=== PATIENT | female | born 1930 | race Caucasian/White ===

== ENCOUNTER 2016-08-09 14:38 | Emergency (ER) | payer MEDICARE ==
[2016-08-09 14:52] VITALS: BP 139/54
--- NOTE | 2016-08-10 16:20 | UC ---
Lucia Abdalla Erika, scribed for Danielle Manzano MD on 08/09/16 at 1500 . Complaint Female HPI - HPI Summary HPI Summary: Patient is an 85-year-old female presenting to [facility] with a CC of frequent urination starting last night. Pt reports that she was urinating every 45 minutes through the night. Pt reports that she first developed chills before the urinary symptoms began, which have since resolved. She then developed a full feeling in her bladder, and then the frequent urination started afterwards. Patient denies fever, chest pain, SOB, back pain, nausea, and vomiting. Pt also reports a recent diagnosis of vertigo, for which she has been seen by ENT and is taking medication. She also reports she has been taking 2.5 weeks of amoxicillin, current dose at 500 mg 1x/day, for inflammation of her left lower molar. Pt reports a Hx of UTI "many years ago." FHx cancer. - History Of Current Complaint Chief Complaint: UCDizziness Stated Complaint: DIZZY Hx Obtained From: Patient Onset/Duration: Gradual Onset, Lasting Hours, Still Present Timing: Constant Severity Initially: Mild Severity Currently: Moderate Pain Intensity: 5 Pain Scale Used: 0-10 Numeric Aggravating Factor(s): Urination Alleviating Factor(s): Nothing Associated Signs And Symptoms: Negative: Fever, Back Pain, Nausea, Vomiting(# Of Episodes =) - Risk Factors Ectopic Risk Factor: Negative Ovarian Torsion Risk Factor: Negative - Allergies/Home Medications Allergies/Adverse Reactions: Allergies Allergy/AdvReac Type Severity Reaction Status Date / Time Scopolamine Allergy Intermediate Hives, Verified 06/08/13 08:25 itching, hypertension Home Medications: Home Medications Amoxicillin CAP* 1 cap PO DAILY 08/09/16 [History Confirmed 08/09/16] PMH/Surg Hx/FS Hx/Imm Hx Endocrine History Of: Denies: Diabetes, Thyroid Disease Cardiovascular History Of: Reports: Cardiac Disorders - valve prolapse, Hypertension - ON MEDS Denies: Pacemaker/ICD Respiratory History Of: Denies: COPD, Asthma, Bronchitis GI/ History Of: Denies: Ulcer Cancer History Of: Denies: Breast Cancer - Surgical History Surgical History: Yes Surgery Procedure, Year, and Place: Ovarian cyst removed 1966 [facility] [place] , hysterectomy 1979 (appendix removed at same time 1979, [facility] [place]), R wrist surgical repair, 2000, [facility] [place]. 1996, RIGHT KNEE, [facility] [place],. 2010 rt tibial fx./CATARACT REPAIR 2012 - Family History Known Family History: Positive: Hypertension, Other - pos breast CA (sister) - Social History Alcohol Use: Rare Substance Use Type: None Smoking Status (MU): Never Smoked Tobacco Review of Systems Constitutional: Chills ENT: Dental Pain - left lower molar, improving Genitourinary: Frequency, Other - full feeling in bladder Neurological: Other - vertigo All Other Systems Reviewed And Are Negative: Yes Physical Exam Triage Information Reviewed: Yes Appearance: No Pain Distress, Well-Nourished, Ill-Appearing - Mildly Vital Signs: Initial Vital Signs Temp 98 F 08/09/16 14:44 Pulse 77 08/09/16 14:44 Resp 18 08/09/16 14:44 BP 139/54 08/09/16 14:44 Pulse Ox 96 08/09/16 14:44 Vital Signs Reviewed: Yes Eyes: Positive: Conjunctiva Clear ENT: Positive: Normal ENT inspection Dental Exam: Other - Inflammed tooth with minimal swelling of the gums - @ tooth that is two posterior to the canine, left lower Dental: Positive: Gross Decay/Caries @ Neck: Positive: Supple Respiratory: Positive: No respiratory distress Cardiovascular: Positive: RRR, Pulses Normal, Brisk Capillary Refill Abdomen Description: Positive: Nontender, No Organomegaly, Soft. Negative: CVA Tenderness (R), CVA Tenderness (L), Distended, Guarding Musculoskeletal: Positive: Strength Intact, ROM Intact Neurological: Positive: Alert, Muscle Tone Normal Psychological Exam: Normal Skin Exam: Normal Diagnostics - Laboratory Diagnostic Studies Completed/Ordered: UA: 1.005, pH 7, 500 WBCs/microL, 300 RBCs /microL, protein 100 mg/dL, all else negative Re-Evaluation - Re-Evaluation First Eval Re-Evaluation Time: 15:34 Change: Unchanged Comment: Informing patient of UA results and discharge plan Complaint Female Dx - Differential Dx/Diagnosis Differential Diagnosis/HQI/PQRI: Ureteral Stone, Urinary Tract Infection Provider Diagnoses: 1. Urinary Tract Infection - Physician Notifications Discussed Patient Care With: Spoke to Madhavi in pharmacy, clarified that bactrim is 1 PO BID Discharge - Discharge Plan Condition: Stable Disposition: HOME Prescriptions: Sulfamethox/Trimethoprim DS* [Bactrim DS 800/160 TAB*] 1 tab PO BID #14 tab Patient Education Materials: Urinary Tract Infection in Women (ED) Referrals: Farhat MONTEMAYOR,Eder [Primary Care Provider] - The documentation as recorded by the Lucia cleary Erika accurately reflects the service I personally performed and the decisions made by me, Danielle Manzano MD.
== END 2016-08-09 15:50 | disposition home or self-care (01) ==
LOC: UCEAST 14:38
DX: R35.0 Frequency of micturition (principal); N39.0 Urinary tract infection, site not specified; I10 Essential (primary) hypertension; R42 Dizziness and giddiness
CPT/HCPCS: 81002; 87077; 87086; 87186; 99212; G0463

== ENCOUNTER → 2016-12-17 14:46 | Emergency (ER) | payer MEDICARE ==
[~2016-12-17 14:46] MED LIST: HYDROcodone/ACETAMIN 5-325 MG* 1 TAB ONE; HYDROcodone/ACETAMIN 5-325 MG* 1 TAB PO ONE; Iohexol 300* (CONTRAST) 10 ML SDV IV ONE; LORazepam INJ* 2 MG/ML 1 ML VIAL IV ONE; LORazepam INJ* 2 MG/ML 1 ML VIAL ONE; Morphine INJ* 2 MG/ML 1 ML SYRINGE IV ONE; Morphine INJ* 2 MG/ML 1 ML SYRINGE ONE; NS 0.9% 250 ML* 250 ML IV ONE; Ondansetron INJ* 2 MG/ML VIAL IV ONE
[2016-12-17 16:28] LABS: Hematocrit 40 % (35-47); Hemoglobin 13.4 g/dl (12.0-16.0); Mean Corpuscular HGB Conc 34 g/dl (31-36); Mean Corpuscular Hemoglobin 32 pg (27-31); Mean Corpuscular Volume 94 fL (80-97); Mean Platelet Volume 8 um3 (7.4-10.4); Red Blood Count 4.21 10^6/ul (4.0-5.4); Red Cell Distribution Width 13 % (10.5-15); White Blood Count 10.7 10^3/ul (3.5-10.8)
--- NOTE | 2016-12-17 16:34 | ED ---
Lower Extremity - HPI Summary HPI Summary: Patient was at home when she tripped over the corner of her wood stove base. She fell forward onto the carpet and landed on her right side, barely hitting her head on the floor. She was able to get to her feet for ice and an ibuprofen , but called a friend for help and they brought her in. She has pain with movement and weight bearing. She denies previous injury. No LOC, CP, SOB, MISTRY or neck pain. She has right flank and abdominal pain, as well as right hip and sacral pain. She denies N/T, incontinence or bruising. - History of Current Complaint Chief Complaint: EDBackInjuryPain Stated Complaint: LOWER BACK PAIN Time Seen by Provider: 12/17/16 15:25 Hx Obtained From: Patient Mechanism Of Injury: Fall From A Standing Position Onset of Pain: Immediate Onset/Duration: Hours Severity Initially: Moderate Severity Currently: Moderate Pain Intensity: 5 Timing: Constant Character Of Pain: Sharp, Aching Associated Signs And Symptoms: Positive: Abdominal Pain Aggravating Factor(s): Standing, Movement, Weight Bearing Alleviating Factor(s): Nothing Able to Bear Weight: Yes - with pain - Allergies/Home Medications Allergies/Adverse Reactions: Allergies Allergy/AdvReac Type Severity Reaction Status Date / Time Scopolamine Allergy Intermediate Hives, Verified 06/08/13 08:25 itching, hypertension PMH/Surg Hx/FS Hx/Imm Hx Endocrine/Hematology History: Denies: Hx Diabetes, Hx Thyroid Disease Cardiovascular History: Reports: Hx Hypertension - ON MEDS, 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 Denies: Hx Pacemaker/ICD Comment Only: Other Cardiovascular Problems/Disorders - MITROVALVE PROLAPSE Respiratory History: Denies: Hx Asthma, Hx Chronic Obstructive Pulmonary Disease (COPD), Other Respiratory Problems/Disorders GI History: Denies: Hx Ulcer, Other GI Disorders History: Reports: Other Problems/Disorders - Ovarian cyst removed 1966, recent urinary frequency Musculoskeletal History: Reports: Other Musculoskeletal History - Hx osteoporosis Sensory History: Reports: Hx Cataracts, Hx Contacts or Glasses - GLASSES Denies: Hx Hearing Aid Opthamlomology History: Reports: Hx Cataracts, Hx Contacts or Glasses - GLASSES Neurological History: Reports: Other Neuro Impairments/Disorders - CHRONIC FATIGUE SYNDROME Psychiatric History: Denies: Hx Panic Disorder - Cancer History Hx Chemotherapy: No Hx Radiation Therapy: No - Surgical History Surgery Procedure, Year, and Place: [place] [facility] [place] , [place] (appendix removed at [place] time [place] [facility] [place] wrist surgical repair, [place] [facility] [place]. [place], RIGHT [place] [facility] [place],. 2010 rt tibial fx./CATARACT REPAIR 2012 Hx Anesthesia Reactions: No Infectious Disease History: Yes Infectious Disease History: Denies: Hx Clostridium Difficile, Hx Hepatitis, Hx Human Immunodeficiency Virus (HIV), Hx of Known/Suspected MRSA, Hx Shingles, Hx Tuberculosis, Hx Known/ Suspected VRE, Hx Known/Suspected VRSA, History Other Infectious Disease, Traveled Outside the [place] in Last 30 Days - Family History Known Family History: Positive: Hypertension, Other - pos breast CA (sister) - Social History Occupation: Retired Lives: With Family Alcohol Use: Rare Substance Use Type: Reports: None Smoking Status (MU): Never Smoked Tobacco Review of Systems Negative: Chest Pain Negative: Shortness Of Breath Positive: Abdominal Pain. Negative: Vomiting Positive: Myalgia, Decreased ROM Negative: Bruising Negative: Weakness, Paresthesia, Numbness All Other Systems Reviewed And Are Negative: Yes Physical Exam Triage Information Reviewed: Yes Vital Signs On Initial Exam: Initial Vitals Temp Pulse Resp BP Pulse Ox 98.5 F 76 18 151/75 95 12/17/16 15:13 12/17/16 15:13 12/17/16 15:13 12/17/16 15:13 12/17/16 15:13 Vital Signs Reviewed: Yes Appearance: Positive: Well-Appearing, Pain Distress, Thin Skin: Positive: Warm, Skin Color Reflects Adequate Perfusion, Dry, Soft Head/Face: Positive: Normal Head/Face Inspection Eyes: Positive: EOMI, SONIDO, Conjunctiva Clear ENT: Positive: Hearing grossly normal, Pharynx normal, TMs normal Neck: Positive: Supple, Nontender Respiratory/Lung Sounds: Positive: Clear to Auscultation, Breath Sounds Present Cardiovascular: Positive: RRR Abdomen Description: Positive: Soft, CVA Tenderness (R). Negative: Nontender - TTP RUQ and right flank, CVA Tenderness (L), Distended, Guarding, Peritoneal Signs, Pulsatile Mass Bowel Sounds: Positive: Present Musculoskeletal: Positive: Limited @ - patient unwilling to to perform movements due to pain, Pain @ - TTP right hip, SI joint and sacral region; + B SLR Neurological: Positive: Sensory/Motor Intact, Alert, Oriented to Person Place, Time, CN Intact II-III, NV Bundle Intact Distally, Abnormal Gait Psychiatric: Positive: Affect/Mood Appropriate AVPU Assessment: Alert - Liliya Coma Scale Coma Scale Total: 15 Diagnostics - Vital Signs Vital Signs Temp Pulse Resp BP Pulse Ox 12/17/16 16:27 17 12/17/16 16:26 74 16 154/81 12/17/16 15:13 98.5 F 76 18 151/75 95 - Laboratory Result Diagrams: 12/17/16 16:16 12/17/16 16:16 Lab Statement: Any lab studies that have been ordered have been reviewed, and results considered in the medical decision making process. Re-Evaluation - Re-Evaluation First Eval Change: Improved Lower Extremity Course/Dx - Diagnoses Differential Diagnosis/HQI/PQRI: Positive: Arthritis, Bursitis, Cellulitis, Contusion, Fracture (Closed), Sprain, Strain Provider Diagnoses: Fall from standing, Sacral back pain, Right hip pain - Physician Notifications Discussed Care of Patient With: Patient care signed out to Juliann Padilla PA-C. Time Discussed With Above Provider: 17:45 Discharge - Discharge Plan Condition: Stable Disposition: HOME Patient Education Materials: Muscle Strain (ED), Fall Prevention for Older Adults (ED), Contusion in Adults (ED) Referrals: Eder Dougherty MD [Primary Care Provider] - Additional Instructions: You appear to have multiple areas of muscle strain/ligament strain since your fall. It is advised that you ice and perform gentle stretches and movements to prevent stiffness. You may also try hot showers and baths along with good hydration and nutrition to aid your healing process. You may take ibuprofen with food alternating with acetaminophen for pain during the day. If you choose to take norco (hydrocodone/acetaminophen), caution taking too much acetaminophen (less than 4,000mg per 24 hours). It is also advised that you avoid taking norco with alprazolam before bed to reduce risk of excessive drowsiness, dizziness, confusion and reduced breathing efforts. This medication may also cause constipation - you may be proactive by taking stool softeners and maintaining good hydration plus fiber. You may take norco before bed to help with pain and help you sleep. Follow-up with PCP this week. Call tomorrow to schedule an appointment. *If you develop headache, visual change, confusion, numbness, weakness, vomiting , etc - return to ED
[2016-12-17 16:49] LABS: ALT 20 U/L (7-52); AST 25 U/L (13-39); Albumin 4.1 g/dL (3.2-5.2); Alkaline Phosphatase 58 U/L (34-104); Anion Gap 9 mmol/L (2-11); BUN/Creatinine Ratio 25.8 (8-20); Blood Urea Nitrogen 16 mg/dL (6-24); C Reactive Protein < 1.00 mg/L (< 5.00); CO2 Carbon Dioxide 30 mmol/L (22-32); Calcium 9.4 mg/dL (8.6-10.3); Chloride 97 mmol/L (101-111); EGFR African American 117.4 (>60); EGFR Non-African American 91.3 (>60); Globulin 3.1 g/dL (2-4); Glucose 98 mg/dL (70-100); Potassium 3.4 mmol/L (3.5-5.0); Sodium 136 mmol/L (133-145); Total Protein 7.2 g/dL (6.4-8.9)
[2016-12-17 17:41] LABS: Urine Bilirubin Negative (Negative); Urine Glucose Negative (Negative); Urine Nitrite Negative (Negative)
--- NOTE | 2016-12-17 19:35 | RAD ---
INDICATION: Trauma to the back of the head. COMPARISON: None. TECHNIQUE: Contiguous axial sections of the brain were obtained from the skull base to the vertex without contrast. FINDINGS: The ventricles, cisterns and sulci are within normal limits. There are mild to moderate periventricular and subcortical white matter changes most consistent with mild chronic microvascular disease. The morales-white matter differentiation is adequately maintained and there is no sulcal effacement. No significant focal abnormality or mass effect is present. There is no evidence for intracranial hemorrhage. No significant focal osseous abnormality is present. The visualized portion of the paranasal sinuses and mastoid air cells appear clear. IMPRESSION: Age-appropriate chronic findings as described above without CT evidence of calvarial fracture or acute intracranial hemorrhage.
--- NOTE | 2016-12-17 19:53 | RAD ---
CLINICAL HISTORY: ] Abdominal, flank and pelvic pain after a fall COMPARISON: Similar CT examination dated October 26, 2012 TECHNIQUE: Contrast enhanced CT examination of the abdomen and pelvis from the lung bases through the initial tuberosities. The patient received 79 mL Omnipaque 300 intravenously prior to imaging.The patient received oral contrast as well prior to imaging. FINDINGS: VISUALIZED LUNG BASES: Centrilobular emphysematous changes are seen at the bilateral lung bases. Visualized lung bases are grossly clear. There is no pleural effusion. ABDOMEN AND PELVIS: There is a small to moderate hiatal hernia. Oral contrast from the stomach is refluxing into the hiatal hernia. There is asymmetric wall thickening of the site of hernia measuring 7 mm in thickness (image 8 of 93). The liver, spleen, pancreas and adrenal glands are grossly normal in appearance. The gallbladder is normal. The kidneys are normal in appearance without focal mass, calcification or signs of hydronephrosis. The urinary bladder measures 10.3 x 10.8 cm in the axial plane 11.4 cm in the cephalocaudal projection. This yields an approximate volume of just over 1 L. The oral contrast has progressed to the midportion of the small bowel. The small and large bowel are not distended. There is no gross retroperitoneal or mesenteric lymphadenopathy. The pelvic viscera is normal in appearance. The moderately calcified abdominal aorta and iliac arteries are normal in course and diameter. There is compression deformity involving the L1 vertebral body that is new since the 2013 CT examination. There is no retropulsion of fragments. There is no definite inflammatory change of the soft tissue surrounding the vertebral body. Elsewhere degenerative changes include loss of intervertebral disc height. There is cortical irregularity involving the right inferior pubic ramus (axial image 82 of 93). With similar cortical irregularity involving the right-sided superior pubic ramus. This is new since the previous CT examination but appears chronic with bony callus formation and continuous cortices. IMPRESSION: 1. There is a compression deformity of the L1 vertebral body that was not seen on the October 26, 2012 CT examination. This is not necessarily have features associated with an acute fracture. There is no retropulsion of fragments. Please correlate to the focality of the patient's back pain. 2. There is evidence of a healed right pubic ramus fracture not seen on the October 26, 2012 CT examination but chronic in appearance. 3. There is asymmetric wall thickening of the small hiatal hernia. Please correlate to symptoms of gastritis. If clinically warranted this can be further characterize with endoscopy on a nonemergent basis. 4. Top normal urinary bladder volume measuring just over 1 L. Please correlate to signs or symptoms of neurogenic bladder and/or bladder outlet obstruction. 5. Additional chronic and degenerative changes described in the body of the report.
--- NOTE | 2016-12-17 21:20 | ED ---
Progress - Progress Note Progress Note: Pt signed out earlier tonight pending CT scan results s/p fall earlier today. Patient reports she was at home when she tripped over the corner of her wood stove base. She fell forward onto the carpet and landed on her right side, barely hitting her head on the floor. She was able to get to her feet for ice and an ibuprofen, but after 2 hours of waiting to see if she felt better, she called a friend for help and they brought her in. She had pain with movement and weight bearing however since here, she was able to ambulate well to the bathroom w/o pain or difficulty. She denies previous injury. No LOC, CP, SOB, MISTRY or neck pain. She had right flank, abdominal pain, Rt hip pain (SI region) and sacral pain upon arrival however reports she's feeling better since pain meds. She denies N/T, incontinence or bruising. Her CT scans were reviewed and discussed w/ pt. Head/brain w/o acute findings as well as AB/PELVIS. She was found to have old L1 compression fx and Rt pubic ramus fx of which pt is aware and reports this was the result of a fall from bed a few years ago - healing well. Her CT report also documents bladder retaining urine however pt, son and nurse all report pt has voided alot of urine since CT scan w/o difficulty. Despite NPO order, she has been drinking PO water w/o difficulty. She also had IVF while waiting for test results. Overall, feeling better now. Takes alprazolam before bed. Would like something for breakthrough pain and understands she will not mix norco w/ alprazolam as this may cause excessive drowsiness, dizziness, confusion and increase risk for falls. Pt's son agrees to stay with her for a few days to assist w/ meds, monitoring sx, etc. Pt agrees to f/u w/ PCP this week for recheck and return to ED if sx worsen and/or new neurological deficits present. Re-Evaluation - Re-Evaluation First Eval Change: Improved Course/Dx - Diagnoses Provider Diagnoses: Fall from standing, Sacral back pain, Right hip pain - Provider Notifications Discussed Care Of Patient With: Patient care signed out to Juliann Padilla PA-C. Time Discussed With Above Provider: 17:45
[2016-12-17 22:04] VITALS: BP 156/86
== END | disposition home or self-care (01) ==
LOC: ED 14:46
DX: M53.3 Sacrococcygeal disorders, not elsewhere classified (principal); M25.551 Pain in right hip; W18.09XA Striking against other object with subsequent fall, initial encounter; Y92.009 Unspecified place in unspecified non-institutional (private) residence as the place of occurrence of the external cause; I10 Essential (primary) hypertension; M81.0 Age-related osteoporosis without current pathological fracture; I34.1 Nonrheumatic mitral (valve) prolapse; R53.82 Chronic fatigue, unspecified
CPT/HCPCS: 36415; 70450; 72192; 74177; 80053; 81003; 85025; 86140; 99282; J2060; J2270; J2405; Q9967

== ENCOUNTER 2016-12-22 21:15 | Inpatient (IN) | payer MEDICARE ==
[2016-12-22] MEDS ORDERED: Morphine INJ* 2 MG/ML 1 ML SYRINGE IV ONE (23:02)
--- NOTE | 2016-12-22 23:09 | ED ---
Back Pain - HPI Summary HPI Summary: Patient presents with back pain not well controlled at home with Snowflake. She was seen in the ED on 12/17 after a mechanical fall at home. She was dx with a compression fx and sent home with rx for Snowflake as well as with the understanding her family would help at home during this time and she will follow up with Ortho soon. She arrives today with worsening pain and one incidence of numbness/tingling with some burning sensation down the right leg while ambulating this afternoon. She denies numbness/tingling currently. She states the pain medication has only improved her symptoms slightly and she would like something stronger. She also notes to being unsteady on her feet and feels she is very weak when she attempts to ambulate to the bathroom with help. She had once instance of loss of bladder function, but states it was directly after standing and hasn't happened since. She is currently wearing depends in case it happens again. Denies bowel dysfunction, but states she is very constipated d/t the medication and was due to have an enema. She was able to ambulate with help to the commode and had no bowel or bladder dysfunction in the ED. Likely the once instance was d/t overfilled bladder while awaiting help to rise from a lying position. She denies temperature or color changes in her legs or feet. She does not feel the pain is worse, but it also has not improved. - History of Current Complaint Chief Complaint: EDBackInjuryPain Stated Complaint: BACK PAIN Time Seen by Provider: 12/22/16 21:37 Hx Obtained From: Patient Onset/Duration: Sudden Onset Onset/Duration: Started Days Ago Timing: Constant Back Pain Location: Is Discrete @ - lower back Severity Initially: Moderate Severity Currently: Moderate Pain Intensity: 7 Pain Scale Used: 0-10 Numeric Character: Aching Aggravating Symptom(s): Movement, Lifting, Walking Alleviating Symptom(s): Rest, Position Associated Signs And Symptoms: Positive: Weakness, Numbness, Bladder Incontinence - one episode, now resolved. continues to feel bladder - Risk Factors AAA Risk Factors: Negative TAD Risk Factors: Negative Cauda Equina Risk Factors: Bladder Dysfunction, Lower Extremity Weakness Epidural Abscess Risk Factors: Lower Extemity Numbness, Lower Extremity Weakness - Allergies/Home Medications Allergies/Adverse Reactions: Allergies Allergy/AdvReac Type Severity Reaction Status Date / Time Scopolamine Allergy Intermediate Hives, Verified 06/08/13 08:25 itching, hypertension PMH/Surg Hx/FS Hx/Imm Hx Previously Healthy: Yes Endocrine/Hematology History: Denies: Hx Diabetes, Hx Thyroid Disease Cardiovascular History: Reports: Hx Hypertension - ON MEDS, 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 Denies: Hx Pacemaker/ICD Comment Only: Other Cardiovascular Problems/Disorders - MITROVALVE PROLAPSE Respiratory History: Denies: Hx Asthma, Hx Chronic Obstructive Pulmonary Disease (COPD), Other Respiratory Problems/Disorders GI History: Denies: Hx Ulcer, Other GI Disorders History: Reports: Other Problems/Disorders - Ovarian cyst removed 1966, recent urinary frequency Musculoskeletal History: Reports: Other Musculoskeletal History - Hx osteoporosis Sensory History: Reports: Hx Cataracts, Hx Contacts or Glasses - GLASSES Denies: Hx Hearing Aid Opthamlomology History: Reports: Hx Cataracts, Hx Contacts or Glasses - GLASSES Neurological History: Reports: Other Neuro Impairments/Disorders - CHRONIC FATIGUE SYNDROME Psychiatric History: Denies: Hx Panic Disorder - Cancer History Hx Chemotherapy: No Hx Radiation Therapy: No - Surgical History Surgery Procedure, Year, and Place: Ovarian cyst removed 1966 [facility] , hysterectomy 1979 (appendix removed at same time 1979, [facility] [place]), R wrist surgical repair, 1999, [facility] [place]. 1996, RIGHT KNEE, [facility] [place],. 2010 rt tibial fx./CATARACT REPAIR 2012 Hx Anesthesia Reactions: No - Immunization History Hx Pertussis Vaccination: No Immunizations Up to Date: Unable to Obtain/Confirm Infectious Disease History: No Infectious Disease History: Denies: Hx Clostridium Difficile, Hx Hepatitis, Hx Human Immunodeficiency Virus (HIV), Hx of Known/Suspected MRSA, Hx Shingles, Hx Tuberculosis, Hx Known/ Suspected VRE, Hx Known/Suspected VRSA, History Other Infectious Disease, Traveled Outside the [place] in Last 30 Days - Family History Known Family History: Positive: Hypertension, Other - pos breast CA (sister) - Social History Occupation: Unemployed Lives: Alone Alcohol Use: Rare Hx Substance Use: No Substance Use Type: Reports: None Hx Tobacco Use: No Smoking Status (MU): Never Smoked Tobacco Do You Chew or Dip Tobacco: No Review of Systems Constitutional: Negative Eyes: Negative Cardiovascular: Negative Respiratory: Negative Gastrointestinal: Negative Positive: see HPI, incontinence - 1x episode Positive: Arthralgia - low back pain since fall, Myalgia Skin: Negative Positive: Paresthesia, Numbness Psychological: Normal All Other Systems Reviewed And Are Negative: Yes Physical Exam Triage Information Reviewed: Yes Vital Signs On Initial Exam: Initial Vitals Temp Pulse Resp BP Pulse Ox 99 F 79 18 191/97 96 12/22/16 21:30 12/22/16 21:30 12/22/16 21:30 12/22/16 21:30 12/22/16 21:30 Vital Signs Reviewed: Yes Appearance: Positive: Well-Nourished, Pain Distress Skin: Positive: Warm, Skin Color Reflects Adequate Perfusion Head/Face: Positive: Normal Head/Face Inspection Eyes: Positive: EOMI, SONIDO, Conjunctiva Clear Neck: Positive: Supple, Nontender, No Lymphadenopathy Respiratory/Lung Sounds: Positive: Clear to Auscultation, Breath Sounds Present Cardiovascular: Positive: Normal, RRR Abdomen Description: Positive: Nontender, No Organomegaly, Soft Musculoskeletal: Positive: Pain @ - low back around L4-L6 Neurological: Positive: Alert, Oriented to Person Place, Time, Speech Normal AVPU Assessment: Alert - Liliya Coma Scale Best Eye Response: 4 - Spontaneous Best Motor Response: 6 - Obeys Commands Best Verbal Response: 5 - Oriented Coma Scale Total: 15 Diagnostics - Vital Signs Vital Signs Temp Pulse Resp BP Pulse Ox 12/22/16 21:30 99 F 79 18 191/97 96 - Laboratory Lab Statement: Any lab studies that have been ordered have been reviewed, and results considered in the medical decision making process. Back Pain Course/Dx - Course Course Of Treatment: Patient here 5 days s/p mechanical fall with pain not relieved with Snowflake. She is unable to ambulate well and feels weak and unsteady on her feet. Discussed patient with Dr. Flynn who accepted patient on the basis of failing a walk exam with patient being obviously weak. Will Admit to [facility]. Assessment/Plan: Admit to [facility] - Diagnoses Differential Diagnosis/HQI/PQRI: Positive: Cauda Equina Syndrome, Compressive Cord Syndrome, Strain, Sprain Provider Diagnoses: Back pain - Provider Notifications Instructed by Provider To: Admit As Inpatient Discharge - Discharge Plan Condition: Stable Disposition: ADMITTED TO [facility] Discharge Disposition Comment: Spoke with Dr. Flynn at 11:00pm
[2016-12-22] MEDS ORDERED: HYDROcodone/ACETAMIN 5-325 MG* 1 TAB ONE (23:23)
[2016-12-22] MEDS ORDERED: HYDROcodone/ACETAMIN 5-325 MG* 1 TAB PO ONE (23:25)
[2016-12-22] MEDS ORDERED: Ondansetron INJ* 2 MG/ML VIAL IV PRN (23:32)
[2016-12-22] MEDS ORDERED: Polyethylene Glycol 3350* 17 GM PACKET PO SCH (23:35)
[2016-12-22] MEDS ORDERED: ALPRAZolam TAB* 0.25 MG PO PRN (23:36)
[2016-12-23 01:13] LABS: Hematocrit 37 % (35-47); Hemoglobin 12.3 g/dl (12.0-16.0); Mean Corpuscular HGB Conc 33 g/dl (31-36); Mean Corpuscular Hemoglobin 32 pg (27-31); Mean Corpuscular Volume 95 fL (80-97); Mean Platelet Volume 7 um3 (7.4-10.4); Red Blood Count 3.92 10^6/ul (4.0-5.4); Red Cell Distribution Width 13 % (10.5-15); White Blood Count 7.4 10^3/ul (3.5-10.8)
[2016-12-23 01:23] LABS: Calcium 8.8 mg/dL (8.6-10.3); EGFR African American 124.3 (>60); EGFR Non-African American 96.6 (>60); Potassium 3.3 mmol/L (3.5-5.0)
--- NOTE | 2016-12-23 02:35 | HP ---
HISTORY AND PHYSICAL: DATE OF ADMISSION: 12/22/16 PRIMARY CARE PROVIDER: Dr. Dougherty. ATTENDING PHYSICIAN WHILE IN THE HOSPITAL: Alexx Patiño MD* (report dictated by Amari Miranda NP) CHIEF COMPLAINT: Back pain. HISTORY OF PRESENT ILLNESS: Mrs. Kirby is an 86-year-old female patient. She has a history of hypertension, osteoporosis, chronic fatigue, and hyperlipidemia. She comes in to the ER today stating that early this week, she was at home. She tripped over her horse, she fell, she came to the ER, was found to have a compression fracture, was sent home on p.o. pain control. Unfortunately, the pain over the last 24 hours has gotten too severe for her to tolerate at home. She stated that she was having some numbness down the front of her leg. She had no weakness. No incontinence of urine or stool. She has actually said she was constipated. She needed to take an extra dose of her stool softener. She finally had a bowel movement today, but she was concerned because the pain was just unbearable. Anytime she tried to get up to walk, she was having a hard time, so she came in to the ER. She denied having any shortness of breath. She denied having any chest pain. She denied having any abdominal pain. No nausea. No vomiting. She denied having any episodes, where she fainted or had any loss of consciousness. She came in to the ER, where she was evaluated. They tried to ambulate the patient, but unfortunately she was unable to ambulate safely. She was having too much pain despite giving a total of 4 mg of IV morphine. She was having too much discomfort still and we were asked to evaluate for admission. PAST MEDICAL HISTORY: Significant for: 1. Hypertension. 2. Osteoporosis. 3. Chronic fatigue. 4. Hyperlipidemia. PAST SURGICAL HISTORY: The patient has had: 1: Ankle surgery. 2. Cataract extraction. 3. Hysterectomy. 4. Wrist fracture. 5. She has also had a fractured lower extremity. HOME MEDICATIONS: According to the list that she gave me includes: 1. Triamterene/hydrochlorothiazide 1 tablet p.o. daily. 2. Simvastatin 20 mg daily. 3. Xanax 0.25 mg p.o. daily as needed. ALLERGIES TO MEDICATIONS: Include SCOPOLAMINE. FAMILY HISTORY: Both her parents had stroke. SOCIAL HISTORY: She does not smoke. She does not drink. Surrogate decision maker is her son, Lonny. REVIEW OF SYSTEMS: There is no documented fever. Denied having any significant weight change. There was no double vision. Denies having any ear discharge. There is no rhinorrhea. No sore throat. No thyroid enlargement. Denied having any chest pain. There was no orthopnea. No nocturnal dyspnea. There was no abdominal pain. No nausea. No vomiting. Review of 14 systems completed, all others negative. PHYSICAL EXAMINATION GENERAL: At this time, Mrs. Kirby is an 86-year-old female patient, she is sitting in the ER stretcher. She does not appear to be in any acute distress. VITAL SIGNS: Blood pressure initially was 191/97, pulse of 79, respirations 18 , O2 sat 96%, and temperature 99. Her blood pressure now is noted to be 180/ 70. She is in a significant amount of pain. HEENT: Head is atraumatic, normocephalic. Eyes: EOMs are intact. Sclerae anicteric and not pale. NECK: Supple. Throat: Oral mucosa appears to be moist. No oropharyngeal erythema. LUNGS: Clear to auscultation bilaterally. No wheezes, rales, or rhonchi. HEART: Sounds S1, S2. Regular rate and rhythm. No murmurs, rubs, or gallops. ABDOMEN: Soft, flat, and nontender. Bowel sounds present. EXTREMITIES: Pulses were 2+ throughout. She is actually able to move all 4 extremities with 5/5 strength. On straight leg raise to the right lower extremity, she does elicit pain at about 20 degrees and had 5/5 strength. NEUROLOGICAL: She is awake, alert, and oriented x3. Tongue midline. Labor Gang Supervisor were equal. No gross focal deficits. She has equal sensation of bilateral lower extremities. She has good strength and movement. She does have pain with ambulation. SKIN: Is intact. DIAGNOSTIC STUDIES/LAB DATA: Labs today are pending. She had a CT of the abdomen and pelvis, which reported, impression: "There is compression deformity at L1 vertebral body, which was not seen on the 10/26/12 examination. Evidence of healed right pubic rami fracture. There is eccentric wall thickening of the small hiatal hernia, please correlate with symptoms of gastritis and she had a brain CT done as well on the , which revealed age- appropriate chronic findings as described in the CT. Old medical records were reviewed. ASSESSMENT AND PLAN: Mrs. Kirby is an 86-year-old female patient coming in to the ER today with complaints of back pain. Despite adequate good pain control in the ED, she was having difficulty with ambulation. There was concern. Hospitalist service was asked to evaluate for admission. She will be admitted under observation status for: 1. Intractable back pain: At this point, I suspect this is from the L1 compression fracture. In fact, she is not having any neuro deficits. There is no signs of incontinence of urine or stool. My plan at this point is I will actually go ahead and put her on [place] 2 tablets every 4 hours with an aggressive bowel regimen. In addition, there is p.r.n. Flexeril for spasm. In addition to this, we will also place her on Lidoderm patch. 2. Hypertension: Continue meds as prescribed. 3. Osteoporosis: Follow up with the primary. 4. Chronic fatigue: Follow up with the primary. 5. Hyperlipidemia: Continue statin therapy. 6. DVT prophylaxis: She is high risk. She will be placed on heparin subcu. 7. Fluids, electrolytes, and nutrition: She can have a regular diet. 8. Code status: Full code. TIME SPENT: Time spent on the admission was 60 minutes; greater than half the time was spent [id number] with the patient obtaining my history and physical, the other half time is spent going over the plan of care with the patient and implementing plan of care. I discussed the plan of care with my attending, Dr. Patiño. He is in agreement. AMARI MRIANDA NP CC: Dr. Dougherty* [id number]/[facility] #: [id number] [place]
[2016-12-23] MEDS: Senna TAB PO SCH ×2 (04:15→21:36)
[2016-12-23] MEDS: Heparin VIAL(*) 5000 UNITS/ML VIAL (FIVE THOUSAND) SUBCUT SCH ×3 (05:49→21:39)
[2016-12-23] MEDS: HYDROcodone/ACETAMIN 5-325 MG* 1 TAB PO PRN ×2 (07:38→12:33)
[2016-12-23] MEDS: Triamterene/HCTZ 37.5-25 MG* CAP PO SCH (07:41)
[2016-12-23] MEDS: Atorvastatin* 10 MG TAB PO SCH (07:42)
[2016-12-23] MEDS: Docusate CAP* 100 MG PO SCH ×2 (07:42→21:35)
[2016-12-23] MEDS ORDERED: Lidocaine PATCH 5%* 1 PATCH TRANSDERM SCH (09:00)
[2016-12-23 09:45] LABS: Hematocrit 40 % (35-47); Hemoglobin 13.5 g/dl (12.0-16.0); Mean Corpuscular HGB Conc 34 g/dl (31-36); Mean Corpuscular Hemoglobin 32 pg (27-31); Mean Corpuscular Volume 93 fL (80-97); Mean Platelet Volume 7 um3 (7.4-10.4); Red Blood Count 4.24 10^6/ul (4.0-5.4); Red Cell Distribution Width 13 % (10.5-15); White Blood Count 7.5 10^3/ul (3.5-10.8)
[2016-12-23 10:10] LABS: BUN/Creatinine Ratio 23.6 (8-20); Calcium 9.1 mg/dL (8.6-10.3); EGFR African American 134.8 (>60); EGFR Non-African American 104.8 (>60); Potassium 3.4 mmol/L (3.5-5.0)
[2016-12-23] MEDS: Acetaminophen TAB* 325 MG PO PRN ×3 (10:36→21:36)
[2016-12-23] MEDS ORDERED: HYDROcodone/ACETAMIN 5-325 MG* 1 TAB PO PRN (13:50)
--- NOTE | 2016-12-23 16:09 | PN ---
Subjective Date of Service: 12/23/16 Interval History: Pain about 5/10, little change. Objective Active Medications: Alprazolam (Xanax Tab*) 0.25 mg PO DAILY PRN PRN Reason: ANXIETY Last Admin: 12/23/16 10:40 Dose: 0.25 mg Atorvastatin Calcium (Lipitor*) 10 mg PO DAILY [facility] Last Admin: 12/23/16 07:42 Dose: 10 mg Cyclobenzaprine HCl (Flexeril Tab*) 10 mg PO BID PRN PRN Reason: SPASMS Docusate Sodium (Colace Cap*) 100 mg PO BID [facility] Last Admin: 12/23/16 07:42 Dose: 100 mg Heparin Sodium (Porcine) (Heparin Vial(*)) 5,000 units SUBCUT Q8HR [facility] Last Admin: 12/23/16 12:34 Dose: 5,000 units Lidocaine (Lidoderm 5% Patch*) 1 patch TRANSDERM .ON 0900 OFF AT 2100 [facility] Pharmacy Profile Note (Lidocaine Patch Remove*) 1 note PATCH OFF 2100 [facility] Polyethylene Glycol/Electrolytes (Miralax*) 17 gm PO DAILY@2100 [facility] Last Admin: 12/23/16 04:15 Dose: 17 gm Senna (Senokot Tab*) 2 tab PO BEDTIME [facility] Last Admin: 12/23/16 04:15 Dose: 2 tab Triamterene/HCTZ (Dyazide Cap*) 1 cap PO DAILY [facility] Last Admin: 12/23/16 07:41 Dose: 1 cap Vital Signs 12/23/16 12/23/16 12/23/16 04:53 04:56 07:38 Temperature 98.6 F Pulse Rate 83 Respiratory 17 17 20 Rate Blood Pressure 178/75 (mmHg) O2 Sat by Pulse 95 Oximetry 12/23/16 12/23/16 12/23/16 08:00 08:43 09:38 Temperature 98.2 F Pulse Rate 88 Respiratory 14 16 18 Rate Blood Pressure 188/92 (mmHg) O2 Sat by Pulse 98 Oximetry 12/23/16 12/23/16 12/23/16 10:40 12:33 14:33 Temperature Pulse Rate Respiratory 16 14 16 Rate Blood Pressure (mmHg) O2 Sat by Pulse Oximetry Oxygen Devices in Use Now: None Appearance: Alert, supine in bed. In good spirits. Clearly uncomfortable when sat up in bed and dangled her legs. Eyes: No Scleral Icterus Extremities: No Edema, No Clubbing, Cyanosis, - Skin: No Rash or Ulcers, No Nodules or Sclerosis, - Neurological: Alert and Oriented x 3, NL Sensation - Moves all limbs well. Result Diagrams: 12/23/16 09:34 12/23/16 09:34 Assess/Plan/Problems-Billing Assessment: - Patient Problems (1) Vertebral fracture Current Visit: Yes Status: Acute Code(s): GGJ7670 - SNOMED Code(s): 75229361 Comment: Change to PRN oxycodone and APAP to avoid excessive APAP dosing. Continue PT, OT. (2) HTN (hypertension) Current Visit: Yes Status: Acute Code(s): I10 - ESSENTIAL (PRIMARY) HYPERTENSION SNOMED Code(s): 85443769 Comment: Continue triamterene/thiazide; KCL ordered. (3) Hyperlipidemia Current Visit: Yes Status: Acute Code(s): E78.5 - HYPERLIPIDEMIA, UNSPECIFIED SNOMED Code(s): 62170798 Comment: Continue statin.
[2016-12-23] MEDS: oxyCODONE TAB* 5 MG TAB PO PRN (19:16)
[2016-12-23] MEDS: Potassium Chlor TAB* 10 MEQ TAB.ER PO SCH (19:16)
[2016-12-23] MEDS: Lidocaine Patch REMOVE* 1 NOTE MISC PATCH OFF SCH (21:26)
[2016-12-23] MEDS: Polyethylene Glycol 3350* 17 GM PACKET PO SCH (21:34)
[2016-12-24] MEDS: ALPRAZolam TAB* 0.25 MG PO PRN ×2 (00:07→14:57)
[2016-12-24] MEDS: oxyCODONE TAB* 5 MG TAB PO PRN ×5 (00:07→22:20)
[2016-12-24] MEDS: Heparin VIAL(*) 5000 UNITS/ML VIAL (FIVE THOUSAND) SUBCUT SCH ×3 (04:56→21:14)
[2016-12-24] MEDS: Acetaminophen TAB* 325 MG PO PRN ×2 (04:56→10:38)
[2016-12-24] MEDS: Cyclobenzaprine TAB* 10 MG PO PRN (04:56)
[2016-12-24] MEDS: Docusate CAP* 100 MG PO SCH ×2 (07:51→20:19)
[2016-12-24] MEDS: Potassium Chlor TAB* 10 MEQ TAB.ER PO SCH (07:52)
[2016-12-24] MEDS: Cholecalciferol TAB* 1000 UNITS PO SCH (07:52)
[2016-12-24] MEDS: Polyethylene Glycol 3350* 17 GM PACKET PO SCH ×2 (07:53→20:18)
[2016-12-24] MEDS: Triamterene/HCTZ 37.5-25 MG* CAP PO SCH (07:53)
[2016-12-24] MEDS: Atorvastatin* 10 MG TAB PO SCH (07:53)
[2016-12-24] MEDS ORDERED: Hydrochlorothiazide TAB* 25 MG PO SCH (09:00)
[2016-12-24] MEDS ORDERED: oxyCODONE SR TAB(*) 10 MG TAB.SR PO ONE (14:30)
[2016-12-24] MEDS: oxyCODONE SR TAB(*) 10 MG TAB.SR PO SCH ×2 (14:50→20:18)
--- NOTE | 2016-12-24 15:04 | PN ---
Subjective Date of Service: 12/24/16 Interval History: No subj change. Pain is over 10. She managed to get to the commode twice today. No new c/o. Objective Active Medications: Acetaminophen (Tylenol Tab*) 650 mg PO Q6H PRN PRN Reason: FEVER/PAIN Last Admin: 12/24/16 10:38 Dose: 650 mg Alprazolam (Xanax Tab*) 0.25 mg PO BID PRN PRN Reason: ANXIETY Last Admin: 12/24/16 14:57 Dose: 0.25 mg Atorvastatin Calcium (Lipitor*) 10 mg PO DAILY [facility] Last Admin: 12/24/16 07:53 Dose: 10 mg Cholecalciferol (Vitamin D Tab*) 1,000 units PO DAILY [facility] Last Admin: 12/24/16 07:52 Dose: 1,000 units Cyclobenzaprine HCl (Flexeril Tab*) 10 mg PO BID PRN PRN Reason: SPASMS Last Admin: 12/24/16 04:56 Dose: 10 mg Docusate Sodium (Colace Cap*) 100 mg PO BID [facility] Last Admin: 12/24/16 07:51 Dose: 100 mg Heparin Sodium (Porcine) (Heparin Vial(*)) 5,000 units SUBCUT Q8HR [facility] Last Admin: 12/24/16 14:49 Dose: 5,000 units Lidocaine (Lidoderm 5% Patch*) 1 patch TRANSDERM .ON 0900 OFF AT 2100 [facility] Last Admin: 12/24/16 10:40 Dose: 1 patch Oxycodone HCl (Roxycodone Tab*) 5 mg PO Q4H PRN PRN Reason: PAIN - MODERATE TO SEVERE Last Admin: 12/24/16 11:56 Dose: 5 mg Oxycodone HCl (Oxycontin(*)) 10 mg PO Q12HR [facility] Last Admin: 12/24/16 14:50 Dose: Not Given Pharmacy Profile Note (Lidocaine Patch Remove*) 1 note PATCH OFF 2100 [facility] Last Admin: 12/23/16 21:26 Dose: Not Given Polyethylene Glycol/Electrolytes (Miralax*) 17 gm PO BID [facility] Last Admin: 12/24/16 07:53 Dose: Not Given Potassium Chloride (Klor Con Er Tab*) 20 meq PO DAILY [facility] Last Admin: 12/24/16 07:52 Dose: 20 meq Senna (Senokot Tab*) 2 tab PO BEDTIME [facility] Last Admin: 12/23/16 21:36 Dose: 2 tab Triamterene/HCTZ (Dyazide Cap*) 1 cap PO DAILY [facility] Last Admin: 12/24/16 07:53 Dose: 1 cap Vital Signs 12/23/16 12/23/16 12/23/16 19:16 19:37 21:16 Temperature 98.0 F Pulse Rate 77 Respiratory 14 16 17 Rate Blood Pressure 149/67 (mmHg) O2 Sat by Pulse 98 Oximetry 12/23/16 12/24/16 12/24/16 22:11 00:03 00:07 Temperature 98.8 F Pulse Rate 81 Respiratory 18 16 20 Rate Blood Pressure 182/76 (mmHg) O2 Sat by Pulse 96 Oximetry 12/24/16 12/24/16 12/24/16 01:59 02:00 04:56 Temperature Pulse Rate Respiratory 16 16 18 Rate Blood Pressure (mmHg) O2 Sat by Pulse Oximetry 12/24/16 12/24/16 12/24/16 06:56 07:17 07:52 Temperature Pulse Rate 80 Respiratory 16 16 16 Rate Blood Pressure 160/78 (mmHg) O2 Sat by Pulse 94 Oximetry 12/24/16 12/24/16 12/24/16 08:00 09:51 11:56 Temperature Pulse Rate Respiratory 16 16 16 Rate Blood Pressure (mmHg) O2 Sat by Pulse Oximetry 12/24/16 12/24/16 12/24/16 13:56 14:44 14:50 Temperature Pulse Rate Respiratory 16 16 16 Rate Blood Pressure (mmHg) O2 Sat by Pulse Oximetry 12/24/16 14:57 Temperature Pulse Rate Respiratory 1 Rate Blood Pressure (mmHg) O2 Sat by Pulse Oximetry Oxygen Devices in Use Now: None Appearance: Supine in bed, hips and kness flexed. Alert. In fair spirits. Extremities: No Edema, No Clubbing, Cyanosis, - Skin: No Rash or Ulcers, No Nodules or Sclerosis, - Neurological: Alert and Oriented x 3 - foot dorsiflexion strong BL. , NL Sensation Result Diagrams: 12/23/16 09:34 12/23/16 09:34 Assess/Plan/Problems-Billing Assessment: - Patient Problems (1) Vertebral fracture Current Visit: Yes Status: Acute Code(s): [id number] - SNOMED Code(s): 18089498 Comment: Add oxycodone 10 mg bid, to get 2 doses 12/24. Dr. Mckeon to consult. Continue PT, OT. (2) HTN (hypertension) Current Visit: Yes Status: Acute Code(s): I10 - ESSENTIAL (PRIMARY) HYPERTENSION SNOMED Code(s): 07291029 Comment: Continue triamterene/thiazide; KCL ordered. (3) Hyperlipidemia Current Visit: Yes Status: Acute Code(s): E78.5 - HYPERLIPIDEMIA, UNSPECIFIED SNOMED Code(s): 84281370 Comment: Continue statin.
--- NOTE | 2016-12-24 16:31 | RAD ---
Indication: Fall, back pain. CT of the thoracic spine was obtained in the axial plane. Sagittal and coronal reconstructed images were obtained. Comparison is made with previous exam dated December 17, 2016. There is compression of the L1 vertebra with compression of approximately 50%. This appears to have progressed since previous exam of December 17, 2016. The remainder of the thoracic vertebra appear normal in height and alignment although diffuse osteopenia is noted. No focal protrusion is present at any of the thoracic disc levels. The spinal canal appears to be intact. The lung zavala demonstrate dependent changes of the lung zavala. No alveolar consolidation is noted. IMPRESSION: Progressive compression of L1 vertebra which is now approximately 50% compressed. The remainder of the thoracic spine demonstrates no compression fracture.
[2016-12-24] MEDS: Lidocaine Patch REMOVE* 1 NOTE MISC PATCH OFF SCH (20:19)
[2016-12-24] MEDS: Senna TAB PO SCH (20:19)
[2016-12-25] MEDS: oxyCODONE TAB* 5 MG TAB PO PRN ×5 (02:25→23:14)
[2016-12-25] MEDS: ALPRAZolam TAB* 0.25 MG PO PRN ×2 (02:36→19:24)
[2016-12-25] MEDS: Cyclobenzaprine TAB* 10 MG PO PRN (04:31)
[2016-12-25] MEDS: Heparin VIAL(*) 5000 UNITS/ML VIAL (FIVE THOUSAND) SUBCUT SCH ×3 (05:54→21:12)
[2016-12-25] MEDS: Cholecalciferol TAB* 1000 UNITS PO SCH (08:09)
[2016-12-25] MEDS: Docusate CAP* 100 MG PO SCH ×2 (08:09→20:47)
[2016-12-25] MEDS: Atorvastatin* 10 MG TAB PO SCH (08:09)
[2016-12-25] MEDS: Potassium Chlor TAB* 10 MEQ TAB.ER PO SCH (08:09)
[2016-12-25] MEDS: Polyethylene Glycol 3350* 17 GM PACKET PO SCH ×2 (08:09→20:47)
[2016-12-25] MEDS: Triamterene/HCTZ 37.5-25 MG* CAP PO SCH (08:10)
[2016-12-25] MEDS: oxyCODONE SR TAB(*) 10 MG TAB.SR PO SCH ×2 (08:10→20:47)
[2016-12-25] MEDS ORDERED: Magnesium Hydroxide LIQ* 30 ML UDC PO ONE (12:10)
--- NOTE | 2016-12-25 12:14 | PN ---
Subjective Date of Service: 12/25/16 Interval History: Pain level 9 today, but worse when she gets OOB to use the commode. Slept some last night. She is sl groggy from either the oxycodone, r=the alprazolam, or the combination. Objective Active Medications: Acetaminophen (Tylenol Tab*) 650 mg PO Q6H PRN PRN Reason: FEVER/PAIN Last Admin: 12/24/16 10:38 Dose: 650 mg Alprazolam (Xanax Tab*) 0.25 mg PO BID PRN PRN Reason: ANXIETY Last Admin: 12/25/16 02:36 Dose: 0.25 mg Atorvastatin Calcium (Lipitor*) 10 mg PO DAILY [facility] Last Admin: 12/25/16 08:09 Dose: 10 mg Cholecalciferol (Vitamin D Tab*) 1,000 units PO DAILY [facility] Last Admin: 12/25/16 08:09 Dose: 1,000 units Cyclobenzaprine HCl (Flexeril Tab*) 10 mg PO BID PRN PRN Reason: SPASMS Last Admin: 12/25/16 04:31 Dose: 10 mg Docusate Sodium (Colace Cap*) 100 mg PO BID [facility] Last Admin: 12/25/16 08:09 Dose: 100 mg Heparin Sodium (Porcine) (Heparin Vial(*)) 5,000 units SUBCUT Q8HR [facility] Last Admin: 12/25/16 05:54 Dose: 5,000 units Lidocaine (Lidoderm 5% Patch*) 1 patch TRANSDERM .ON 0900 OFF AT 2100 [facility] Last Admin: 12/24/16 10:40 Dose: 1 patch Oxycodone HCl (Roxycodone Tab*) 5 mg PO Q4H PRN PRN Reason: PAIN - MODERATE TO SEVERE Last Admin: 12/25/16 08:10 Dose: 5 mg Oxycodone HCl (Oxycontin(*)) 10 mg PO Q12HR [facility] Last Admin: 12/25/16 08:10 Dose: 10 mg Pharmacy Profile Note (Lidocaine Patch Remove*) 1 note PATCH OFF 2099 [facility] Last Admin: 12/24/16 20:19 Dose: 1 note Polyethylene Glycol/Electrolytes (Miralax*) 17 gm PO BID [facility] Last Admin: 12/25/16 08:09 Dose: 17 gm Potassium Chloride (Klor Con Er Tab*) 20 meq PO DAILY [facility] Last Admin: 12/25/16 08:09 Dose: 20 meq Senna (Senokot Tab*) 2 tab PO BEDTIME [facility] Last Admin: 12/24/16 20:19 Dose: 2 tab Triamterene/HCTZ (Dyazide Cap*) 1 cap PO DAILY [facility] Last Admin: 12/25/16 08:10 Dose: 1 cap Vital Signs 12/24/16 12/24/16 12/24/16 13:56 14:44 14:50 Temperature Pulse Rate Respiratory 16 16 16 Rate Blood Pressure (mmHg) O2 Sat by Pulse Oximetry 12/24/16 12/24/16 12/24/16 14:57 16:36 16:44 Temperature 98.2 F Pulse Rate 82 Respiratory 1 16 16 Rate Blood Pressure 143/57 (mmHg) O2 Sat by Pulse 96 Oximetry 12/24/16 12/24/16 12/24/16 16:57 17:46 19:46 Temperature Pulse Rate Respiratory 16 16 18 Rate Blood Pressure (mmHg) O2 Sat by Pulse Oximetry 12/24/16 12/24/16 12/24/16 20:00 20:17 20:18 Temperature 98.4 F Pulse Rate 76 Respiratory 16 16 16 Rate Blood Pressure 141/58 (mmHg) O2 Sat by Pulse 96 Oximetry 12/24/16 12/24/16 12/24/16 21:46 22:18 22:20 Temperature Pulse Rate Respiratory 16 18 18 Rate Blood Pressure (mmHg) O2 Sat by Pulse Oximetry 12/24/16 12/24/16 12/25/16 23:35 23:46 00:18 Temperature 99.1 F Pulse Rate 82 Respiratory 16 16 16 Rate Blood Pressure 147/66 (mmHg) O2 Sat by Pulse 93 Oximetry 12/25/16 12/25/16 12/25/16 00:20 02:25 02:36 Temperature Pulse Rate Respiratory 16 16 16 Rate Blood Pressure (mmHg) O2 Sat by Pulse Oximetry 12/25/16 12/25/16 12/25/16 04:20 04:25 04:31 Temperature 98.8 F Pulse Rate 78 Respiratory 16 16 16 Rate Blood Pressure 125/54 (mmHg) O2 Sat by Pulse 94 Oximetry 12/25/16 12/25/16 12/25/16 04:36 06:25 06:30 Temperature Pulse Rate Respiratory 16 16 16 Rate Blood Pressure (mmHg) O2 Sat by Pulse Oximetry 12/25/16 12/25/16 12/25/16 07:22 08:00 08:10 Temperature 98.3 F Pulse Rate 76 Respiratory 16 18 16 Rate Blood Pressure 144/63 (mmHg) O2 Sat by Pulse 92 Oximetry 12/25/16 10:10 Temperature Pulse Rate Respiratory 16 Rate Blood Pressure (mmHg) O2 Sat by Pulse Oximetry Oxygen Devices in Use Now: None Appearance: Alert, supine in bed with hips and knees partly flexed. In fair spirits. Looks comfortable at rest. Eyes: No Scleral Icterus Extremities: No Edema, No Clubbing, Cyanosis, - Skin: No Rash or Ulcers, No Nodules or Sclerosis, - Neurological: Alert and Oriented x 3, NL Sensation - Foot flexion and dorsiflexion strong BL. Result Diagrams: 12/23/16 09:34 12/23/16 09:34 Assess/Plan/Problems-Billing Assessment: - Patient Problems (1) Vertebral fracture Current Visit: Yes Status: Acute Code(s): [id number] - SNOMED Code(s): 37638031 Comment: Continue oxycodone 10 mg bid and PRN meds. Dr. Mckeon to consult. Continue PT, OT. CT thoracic spine shows about 50% compression of L1, felt to have progressed since 12/17/16. (2) HTN (hypertension) Current Visit: Yes Status: Acute Code(s): I10 - ESSENTIAL (PRIMARY) HYPERTENSION SNOMED Code(s): 29836242 Comment: Continue triamterene/thiazide; KCL ordered. (3) Hyperlipidemia Current Visit: Yes Status: Acute Code(s): E78.5 - HYPERLIPIDEMIA, UNSPECIFIED SNOMED Code(s): 59912370 Comment: Continue statin.
--- NOTE | 2016-12-25 14:41 | CONSULT ---
Consult Consult: Neurosurgery Consult Reason for consult: L1 burst fracture Date of consult: 12/25/16 HPI: This is an 86 year old female with past medical history significant for HTN and osteoporosis who presented to the [facility] ED on 12/22/16 with complaint of severe low back pain, not controlled with medication. She had previously been evaluated in the [facility] ED on 12/17/16 after a fall and was diagnosed with a L1 compression fracture. She was discharged home with pain medications. However, over the next several days, the pain continued to worsen. She was initially able to ambulate with assistance of a walker but this ability declined between ED visits. She also began to experience pain in the right lower extremity and numbness of the right foot which have both resolved since admission. She currently complains of low back pain without radiation to the bilateral lower extremities or up/down the spine. Pain is worse with movements and slightly improved with rest. However, she has not been able to sleep well secondary to the pain. Attempts to get up to the bedside commode significantly worsen the pain to a severity of the patient nearly passing out. She also complains of mild sensitivity to touch in the right lower quadrant of the abdomen. She has been taking bowel regulating medications and has had regular bowel movements. She denies numbness, tingling, weakness and pain in the bilateral lower extremities. She denies changes in bladder function; she does have urine incontinence prior to the fall. She denies headache, vision changes, chest pain, difficulty breathing, nausea, vomiting and dizziness. Past medical history: 1. Hypertension 2. Osteoporosis 3. Hyperlipidemia 4. Chronic fatigue Past surgical history: 1. Ovarian cyst resection 2. Hysterectomy 3. Appendectomy 4. Right wrist repair 5. Right knee procedure 6. Tibial fracture procedure 7. Cataracts No adverse reactions to anesthesia. Home medications: 1. Alprazolam 0.25 mg PO DAILY PRN 10/26/12 [History Confirmed 12/22/16] 2. Simvastatin 20 mg PO DAILY 10/26/12 [History Confirmed 12/22/16] 3. Triamterene/HCTZ 37.5-25 MG* 1 tab PO DAILY 10/26/12 [History Confirmed 12/22] Allergies: 1. Scopolamine Social history: The patient does not smoke, rarely consumes alcohol. ROS: Full ROS completed; pertinent findings stated in HPI and all others negative. Physical exam: Vital Signs: Temp Pulse Resp BP Pulse Ox 98.3 F 76 18 144/63 92 12/25/16 07:22 12/25/16 07:22 12/25/16 12:39 12/25/16 07:22 12/25/16 07:22 General: Elderly female laying in bed. Somewhat restless and uncomfortable. HEENT: Head is normocephalic and atraumatic. PERRLA, EOMi. Gross hearing intact. Moist mucus membranes. Neck: Supple, symmetric and nontender. CV: Radial pulses 2+ and equal. Pedal pulses palpable. Lungs: Breathing is nonlabored. Lungs are clear. Abdomen: Normoactive bowel sounds. Mild tenderness to light palpation of right lower quadrant. Abdomen is soft and nondistended. Neuro: Alert and oriented x3. Speech is clear and coherent. CN II-XII intact. Strength 5/5 throughout. Strength testing in the right and left lower extremities creates significant low back pain resulting in giveway weakness. Patellar and achilles refelxes intact bilaterally. Sensation to light touch intact throughout. Extremities: ROM of lower extremities creates pain. Full ROM throughout. Laboratory values: WBC 7.5 10^3/ul (3.5-10.8) 12/23/16 09:34 RBC 4.24 10^6/ul (4.0-5.4) 12/23/16 09:34 Hgb 13.5 g/dl (12.0-16.0) 12/23/16 09:34 Hct 40 % (35-47) 12/23/16 09:34 MCV 93 fL (80-97) 12/23/16 09:34 MCH 32 pg (27-31) H 12/23/16 09:34 MCHC 34 g/dl (31-36) 12/23/16 09:34 RDW 13 % (10.5-15) 12/23/16 09:34 Plt Count 193 10^3/ul (150-450) 12/23/16 09:34 MPV 7 um3 (7.4-10.4) L 12/23/16 09:34 Neut % (Auto) 68.7 % (38-83) 12/23/16 09:34 Lymph % (Auto) 18.3 % (25-47) L 12/23/16 09:34 [place] % (Auto) 9.7 % (1-9) H 12/23/16 09:34 Eos % (Auto) 2.5 % (0-6) 12/23/16 09:34 Baso % (Auto) 0.8 % (0-2) 12/23/16 09:34 Absolute Neuts (auto) 5.2 10^3/ul (1.5-7.7) 12/23/16 09:34 Absolute Lymphs (auto) 1.4 10^3/ul (1.0-4.8) 12/23/16 09:34 Absolute Monos (auto) 0.7 10^3/ul (0-0.8) 12/23/16 09:34 Absolute Eos (auto) 0.2 10^3/ul (0-0.6) 12/23/16 09:34 Absolute Basos (auto) 0.1 10^3/ul (0-0.2) 12/23/16 09:34 Absolute Nucleated RBC 0.01 10^3/ul 12/23/16 09:34 Nucleated RBC % 0.1 12/23/16 09:34 Sodium 135 mmol/L (133-145) 12/23/16 09:34 Potassium 3.4 mmol/L (3.5-5.0) L 12/23/16 09:34 Chloride 98 mmol/L (101-111) L 12/23/16 09:34 Carbon Dioxide 28 mmol/L (22-32) 12/23/16 09:34 Anion Gap 9 mmol/L (2-11) 12/23/16 09:34 BUN 13 mg/dL (6-24) 12/23/16 09:34 Creatinine 0.55 mg/dL (0.51-0.95) 12/23/16 09:34 Est GFR ( Amer) 134.8 (>60) 12/23/16 09:34 Est GFR (Non-Af Amer) 104.8 (>60) 12/23/16 09:34 BUN/Creatinine Ratio 23.6 (8-20) H 12/23/16 09:34 Glucose 107 mg/dL (70-100) H 12/23/16 09:34 Calcium 9.1 mg/dL (8.6-10.3) 12/23/16 09:34 25-OH Vitamin D Total 42.0 ng/mL (30-50) 12/23/16 09:[address] of thoracic spine on 12/24/16 shows L1 burst fracture. Assessment: This is an 86 year old female with past medical history significant for HTN and osteoporosis who presents with severe low back pain consistent with L1 burst fracture shown on CT thoracic spine. Plan: 1. TLSO brace. 2. Bedrest until TLSO brace in place. 3. Discontinue PT and OT for now. 4. Continue pain management. 5. Admitted to Hospitalist service. 6. Full Code.
[2016-12-25] MEDS: Acetaminophen TAB* 325 MG PO PRN (17:54)
[2016-12-25] MEDS: Senna TAB PO SCH (20:47)
[2016-12-25] MEDS: Lidocaine Patch REMOVE* 1 NOTE MISC PATCH OFF SCH (21:02)
[2016-12-26] MEDS: Heparin VIAL(*) 5000 UNITS/ML VIAL (FIVE THOUSAND) SUBCUT SCH ×3 (05:41→21:45)
--- NOTE | 2016-12-26 09:02 | PN ---
Progress Note - Progress Note SOAP: Subjective: []Complains of persistent pain Much worse with activity TLSO brace request placed yesterday Objective: [] Neuro intact Assessment: []L1 fracture Plan: []Case reviewed by Dr. Michael Dsouza at [facility]. He concurs with trying TLSO brace first
[2016-12-26] MEDS: Cholecalciferol TAB* 1000 UNITS PO SCH (09:21)
[2016-12-26] MEDS: Atorvastatin* 10 MG TAB PO SCH (09:21)
[2016-12-26] MEDS: Docusate CAP* 100 MG PO SCH ×2 (09:21→21:43)
[2016-12-26] MEDS: Potassium Chlor TAB* 10 MEQ TAB.ER PO SCH (09:21)
[2016-12-26] MEDS: Polyethylene Glycol 3350* 17 GM PACKET PO SCH ×2 (09:21→23:21)
[2016-12-26] MEDS: oxyCODONE SR TAB(*) 10 MG TAB.SR PO SCH (09:22)
[2016-12-26] MEDS: Triamterene/HCTZ 37.5-25 MG* CAP PO SCH (09:22)
[2016-12-26] MEDS: oxyCODONE TAB* 5 MG TAB PO PRN ×4 (09:40→21:45)
--- NOTE | 2016-12-26 10:43 | PN ---
Subjective Date of Service: 12/26/16 Interval History: No subj change. No new c/o. Large BM recorded today. Objective Active Medications: Acetaminophen (Tylenol Tab*) 650 mg PO Q6H PRN PRN Reason: FEVER/PAIN Last Admin: 12/25/16 17:54 Dose: 650 mg Alprazolam (Xanax Tab*) 0.25 mg PO BID PRN PRN Reason: ANXIETY Last Admin: 12/25/16 19:24 Dose: 0.25 mg Atorvastatin Calcium (Lipitor*) 10 mg PO DAILY [facility] Last Admin: 12/26/16 09:21 Dose: 10 mg Cholecalciferol (Vitamin D Tab*) 1,000 units PO DAILY [facility] Last Admin: 12/26/16 09:21 Dose: 1,000 units Cyclobenzaprine HCl (Flexeril Tab*) 10 mg PO BID PRN PRN Reason: SPASMS Last Admin: 12/25/16 04:31 Dose: 10 mg Docusate Sodium (Colace Cap*) 100 mg PO BID [facility] Last Admin: 12/26/16 09:21 Dose: 100 mg Heparin Sodium (Porcine) (Heparin Vial(*)) 5,000 units SUBCUT Q8HR [facility] Last Admin: 12/26/16 05:41 Dose: 5,000 units Lidocaine (Lidoderm 5% Patch*) 1 patch TRANSDERM .ON 0900 OFF AT 2100 [facility] Last Admin: 12/24/16 10:40 Dose: 1 patch Oxycodone HCl (Roxycodone Tab*) 5 mg PO Q4H PRN PRN Reason: PAIN - MODERATE TO SEVERE Last Admin: 12/26/16 09:40 Dose: 5 mg Oxycodone HCl (Oxycontin(*)) 10 mg PO Q12HR [facility] Last Admin: 12/26/16 09:22 Dose: 10 mg Oxycodone HCl (Roxycodone Tab*) 5 mg PO Q24H [facility] Pharmacy Profile Note (Lidocaine Patch Remove*) 1 note PATCH OFF 2100 [facility] Last Admin: 12/25/16 21:02 Dose: 1 note Polyethylene Glycol/Electrolytes (Miralax*) 17 gm PO BID [facility] Last Admin: 12/26/16 09:21 Dose: 17 gm Potassium Chloride (Klor Con Er Tab*) 20 meq PO DAILY [facility] Last Admin: 12/26/16 09:21 Dose: 20 meq Senna (Senokot Tab*) 2 tab PO BEDTIME [facility] Last Admin: 12/25/16 20:47 Dose: 2 tab Triamterene/HCTZ (Dyazide Cap*) 1 cap PO DAILY [facility] Last Admin: 12/26/16 09:22 Dose: 1 cap Vital Signs 12/25/16 12/25/16 12/25/16 12:39 14:39 15:54 Temperature 98.8 F Pulse Rate 88 Respiratory 18 16 16 Rate Blood Pressure 135/64 (mmHg) O2 Sat by Pulse 96 Oximetry 12/25/16 12/25/16 12/25/16 17:54 19:24 19:54 Temperature Pulse Rate Respiratory 18 16 16 Rate Blood Pressure (mmHg) O2 Sat by Pulse Oximetry 12/25/16 12/25/16 12/25/16 20:00 20:07 20:47 Temperature 98.4 F Pulse Rate 85 Respiratory 16 16 16 Rate Blood Pressure 131/57 (mmHg) O2 Sat by Pulse 94 Oximetry 12/25/16 12/25/16 12/25/16 21:24 22:47 23:14 Temperature Pulse Rate Respiratory 16 16 16 Rate Blood Pressure (mmHg) O2 Sat by Pulse Oximetry 12/25/16 12/26/16 12/26/16 23:22 01:14 04:04 Temperature 99.4 F 98.8 F Pulse Rate 83 89 Respiratory 16 16 16 Rate Blood Pressure 136/67 119/58 (mmHg) O2 Sat by Pulse 96 92 Oximetry 12/26/16 12/26/16 12/26/16 07:30 09:22 09:40 Temperature 98.7 F Pulse Rate 96 Respiratory 16 16 16 Rate Blood Pressure 135/54 (mmHg) O2 Sat by Pulse 92 Oximetry Oxygen Devices in Use Now: None Appearance: Alert, supine in bed. In fair spirits. Patient states pain is severe. Eyes: No Scleral Icterus Neurological: Alert and Oriented x 3, NL Sensation - Moves all limbs well. Result Diagrams: 12/23/16 09:34 12/23/16 09:34 Assess/Plan/Problems-Billing Assessment: - Patient Problems (1) Vertebral fracture Current Visit: Yes Status: Acute Code(s): [id number] - SNOMED Code(s): 78523045 Comment: Continue oxycodone 10 mg bid and PRN meds. Dr. Mckeon,s note appreciated, CT thoracic spine shows about 50% compression of L1, felt to have progressed since 12/17/16. TLSO brace pending. Scheduled daily 2 AM dose oxycodone 5 mg ordered. (2) HTN (hypertension) Current Visit: Yes Status: Acute Code(s): I10 - ESSENTIAL (PRIMARY) HYPERTENSION SNOMED Code(s): 88409566 Comment: Continue triamterene/thiazide, KCL. BMP 12/27.. (3) Hyperlipidemia Current Visit: Yes Status: Acute Code(s): E78.5 - HYPERLIPIDEMIA, UNSPECIFIED SNOMED Code(s): 49156551 Comment: Continue statin.
[2016-12-26] MEDS: ALPRAZolam TAB* 0.25 MG PO PRN (13:20)
--- NOTE | 2016-12-26 15:14 | RAD ---
Indication: Abdominal pain and tenderness Flat plate of the abdomen demonstrates fecal stasis in the right colon and ascending colon. Moderately distended loops of bowel are noted in a nonspecific pattern. Psoas margins are intact. IMPRESSION: Fecal stasis throughout the colon with distended colon and air in a nonspecific pattern.
[2016-12-26] MEDS: Acetaminophen TAB* 325 MG PO PRN (16:30)
[2016-12-26] MEDS ORDERED: Magnesium CITRATE* 300 ML BTL PO ONE (17:56)
[2016-12-26] MEDS ORDERED: oxyCODONE TAB* 5 MG TAB PO ONE (20:38)
[2016-12-26] MEDS: Senna TAB PO SCH (21:43)
[2016-12-26] MEDS: oxyCODONE SR TAB(*) 20 MG TAB.SR PO SCH (21:43)
[2016-12-26] MEDS: Lidocaine Patch REMOVE* 1 NOTE MISC PATCH OFF SCH (23:21)
[2016-12-27] MEDS: oxyCODONE TAB* 5 MG TAB PO SCH (05:51)
[2016-12-27] MEDS: Heparin VIAL(*) 5000 UNITS/ML VIAL (FIVE THOUSAND) SUBCUT SCH ×3 (06:02→20:39)
[2016-12-27 07:21] LABS: Hematocrit 40 % (35-47); Hemoglobin 13.4 g/dl (12.0-16.0); Mean Corpuscular HGB Conc 33 g/dl (31-36); Mean Corpuscular Hemoglobin 31 pg (27-31); Mean Corpuscular Volume 94 fL (80-97); Mean Platelet Volume 7 um3 (7.4-10.4); Red Blood Count 4.25 10^6/ul (4.0-5.4); Red Cell Distribution Width 14 % (10.5-15); White Blood Count 12.1 10^3/ul (3.5-10.8)
[2016-12-27] MEDS: oxyCODONE TAB* 5 MG TAB PO PRN (08:10)
[2016-12-27 08:18] LABS: Calcium 8.9 mg/dL (8.6-10.3); EGFR African American 121.9 (>60); EGFR Non-African American 94.8 (>60); Potassium 4.5 mmol/L (3.5-5.0)
[2016-12-27] MEDS ORDERED: NS 0.9% 1000 ML* 1,000 ML IV SCH (09:15)
--- NOTE | 2016-12-27 10:03 | RAD ---
Indication: Fever. Single frontal view of the chest performed at 0925 hours was reviewed. Comparison is made with previous exam dated July 21, 2016. No mediastinal shift is noted. Heart is of normal size and configuration. Lung zavala appear clear. IMPRESSION: NO ACTIVE CARDIOPULMONARY DISEASE IS NOTED.
[2016-12-27] MEDS: Atorvastatin* 10 MG TAB PO SCH (10:38)
[2016-12-27] MEDS: Triamterene/HCTZ 37.5-25 MG* CAP PO SCH (10:38)
[2016-12-27] MEDS: Docusate CAP* 100 MG PO SCH ×3 (10:38→20:39)
[2016-12-27] MEDS: Potassium Chlor TAB* 10 MEQ TAB.ER PO SCH (10:39)
[2016-12-27] MEDS: Polyethylene Glycol 3350* 17 GM PACKET PO SCH ×2 (10:39→20:39)
[2016-12-27] MEDS: Cholecalciferol TAB* 1000 UNITS PO SCH (10:39)
[2016-12-27 11:25] LABS: Urine Bacteria Absent (Absent); Urine Bilirubin Negative (Negative); Urine Glucose Negative (Negative); Urine Nitrite Negative (Negative)
[2016-12-27] MEDS: HYDROmorphone* 1 MG/ML 1 ML SYR IV SLOW PU PRN ×3 (12:32→23:54)
[2016-12-27] MEDS: oxyCODONE SR TAB(*) 20 MG TAB.SR PO SCH ×2 (12:33→20:39)
[2016-12-27] MEDS ORDERED: HYDROmorphone* 1 MG/ML 1 ML SYR IV SLOW PU ONE (14:41)
[2016-12-27] MEDS ORDERED: HYDROmorphone* 1 MG/ML 1 ML SYR ONE (14:47)
--- NOTE | 2016-12-27 15:01 | PN ---
Subjective Date of Service: 12/27/16 Interval History: Pt still c/o uncontrollable pain . had a large BM today and feels that she will have another one. Long d/w grandson present in room. Grandson requested for pt top try Dilaudid for pain control (he is a hospitalist /PA working at [employer]) Objective Active Medications: Acetaminophen (Tylenol Tab*) 650 mg PO Q6H PRN PRN Reason: FEVER/PAIN Last Admin: 12/26/16 16:30 Dose: 650 mg Alprazolam (Xanax Tab*) 0.25 mg PO BID PRN PRN Reason: ANXIETY Last Admin: 12/26/16 13:20 Dose: 0.25 mg Atorvastatin Calcium (Lipitor*) 10 mg PO DAILY [facility] Last Admin: 12/27/16 10:38 Dose: 10 mg Cholecalciferol (Vitamin D Tab*) 1,000 units PO DAILY [facility] Last Admin: 12/27/16 10:39 Dose: 1,000 units Cyclobenzaprine HCl (Flexeril Tab*) 10 mg PO BID PRN PRN Reason: SPASMS Last Admin: 12/25/16 04:31 Dose: 10 mg Docusate Sodium (Colace Cap*) 100 mg PO BID [facility] Last Admin: 12/27/16 12:33 Dose: 100 mg Heparin Sodium (Porcine) (Heparin Vial(*)) 5,000 units SUBCUT Q8HR [facility] Last Admin: 12/27/16 13:45 Dose: 5,000 units Hydromorphone HCl (Dilaudid Iv*) 0.5 mg IV SLOW PU Q4H PRN PRN Reason: PAIN Last Admin: 12/27/16 12:32 Dose: 0.5 mg Sodium Chloride (Ns 0.9% 1000 Ml*) 1,000 mls @ 75 mls/hr IV PER RATE [facility] Lidocaine (Lidoderm 5% Patch*) 1 patch TRANSDERM .ON 0900 OFF AT 2100 [facility] Last Admin: 12/24/16 10:40 Dose: 1 patch Oxycodone HCl (Roxycodone Tab*) 5 mg PO Q24H [facility] Last Admin: 12/27/16 05:51 Dose: Not Given Oxycodone HCl (Oxycontin(*)) 20 mg PO Q12HR [facility] Last Admin: 12/27/16 12:33 Dose: Not Given Pharmacy Profile Note (Lidocaine Patch Remove*) 1 note PATCH OFF 2100 [facility] Last Admin: 12/26/16 23:21 Dose: Not Given Polyethylene Glycol/Electrolytes (Miralax*) 34 gm PO BID [facility] Last Admin: 12/27/16 10:39 Dose: 34 gm Potassium Chloride (Klor Con Er Tab*) 20 meq PO DAILY [facility] Last Admin: 12/27/16 10:39 Dose: 20 meq Senna (Senokot Tab*) 2 tab PO BEDTIME [facility] Last Admin: 12/26/16 21:43 Dose: 2 tab Triamterene/HCTZ (Dyazide Cap*) 1 cap PO DAILY [facility] Last Admin: 12/27/16 10:38 Dose: 1 cap Vital Signs 12/26/16 12/26/16 12/26/16 15:20 16:12 18:02 Temperature 100.9 F Pulse Rate 97 Respiratory 16 16 16 Rate Blood Pressure 156/71 (mmHg) O2 Sat by Pulse 92 Oximetry 12/26/16 12/26/16 12/26/16 19:31 20:00 20:02 Temperature 98.8 F Pulse Rate 98 Respiratory 20 20 20 Rate Blood Pressure 148/59 (mmHg) O2 Sat by Pulse 91 Oximetry 12/26/16 12/26/16 12/26/16 20:50 21:43 21:45 Temperature Pulse Rate Respiratory 20 20 20 Rate Blood Pressure (mmHg) O2 Sat by Pulse Oximetry 12/26/16 12/26/16 12/26/16 22:50 23:11 23:43 Temperature 98.5 F Pulse Rate 90 Respiratory 16 16 16 Rate Blood Pressure 142/62 (mmHg) O2 Sat by Pulse 92 Oximetry 12/26/16 12/27/16 12/27/16 23:45 04:42 08:10 Temperature 97.4 F Pulse Rate 82 Respiratory 16 16 20 Rate Blood Pressure 154/66 (mmHg) O2 Sat by Pulse 84 Oximetry 12/27/16 12/27/16 12/27/16 08:20 10:10 12:32 Temperature 98.5 F Pulse Rate 99 Respiratory 18 14 16 Rate Blood Pressure 139/66 (mmHg) O2 Sat by Pulse 97 Oximetry 12/27/16 12/27/16 12/27/16 12:33 13:32 14:32 Temperature Pulse Rate Respiratory 16 16 18 Rate Blood Pressure (mmHg) O2 Sat by Pulse Oximetry 12/27/16 14:53 Temperature Pulse Rate Respiratory 16 Rate Blood Pressure (mmHg) O2 Sat by Pulse Oximetry Oxygen Devices in Use Now: Nasal Cannula - at 2l Appearance: 86 yo F in nAD, aAOx3 Eyes: No Scleral Icterus, PERRLA Ears/Nose/Mouth/Throat: NL Teeth, Lips, Gums, Mucous Membranes Moist Neck: NL Appearance and Movements; NL JVP, Trachea Midline Respiratory: Symmetrical Chest Expansion and Respiratory Effort, Clear to Auscultation Cardiovascular: NL Sounds; No Murmurs; No JVD, RRR Abdominal: - - back:tender over L1-L2 back area Lymphatic: No Cervical Adenopathy Extremities: No Edema, No Clubbing, Cyanosis Skin: No Rash or Ulcers, No Nodules or Sclerosis Neurological: Alert and Oriented x 3, NL Muscle Strength and Tone Result Diagrams: 12/27/16 07:00 12/27/16 07:10 Assess/Plan/Problems-Billing Assessment: 86 yo F with h/o HTN presents with L1 compression fracture - Patient Problems (1) Vertebral fracture Comment: Continue oxycodone 20 mg bid and PRN meds. Dr. Mckeon's note appreciated, CT thoracic spine shows about 50% compression of L1, felt to have progressed since 12/17/16. TLSO brace pending. As d/w grandson , will try IV dilaudid for pain control. Pt will likely require pain management consult on Thursday cont Lidoderm patch (2) Hyperlipidemia Comment: Continue statin. (3) HTN (hypertension) Comment: Continue triamterene/thiazide, KCL. (4) Hyponatremia Comment: suspect due to a combination of pain and opioid use and mild dehydration will start gentle IVF and monitor (5) Fever Comment: od 100.9 on 12/26/16 in conjuction with mild hypoxemia at night-? atelectasis? -UA unremarkable CXR WNL. treated with zosyn on 12/26/16, will stop and monitor. blood cx pending (6) DVT prophylaxis Comment: heparin
[2016-12-27] MEDS: ALPRAZolam TAB* 0.25 MG PO PRN (19:12)
[2016-12-27] MEDS: Senna TAB PO SCH (20:39)
[2016-12-27] MEDS: Lidocaine Patch REMOVE* 1 NOTE MISC PATCH OFF SCH (20:59)
[2016-12-28] MEDS: oxyCODONE TAB* 5 MG TAB PO SCH (02:28)
[2016-12-28] MEDS: Heparin VIAL(*) 5000 UNITS/ML VIAL (FIVE THOUSAND) SUBCUT SCH ×3 (05:38→23:28)
[2016-12-28] MEDS: HYDROmorphone* 1 MG/ML 1 ML SYR IV SLOW PU PRN (06:00)
[2016-12-28] MEDS: Polyethylene Glycol 3350* 17 GM PACKET PO SCH ×2 (08:39→21:59)
[2016-12-28] MEDS: ALPRAZolam TAB* 0.25 MG PO PRN (08:40)
[2016-12-28] MEDS: Cholecalciferol TAB* 1000 UNITS PO SCH (08:40)
[2016-12-28] MEDS: oxyCODONE SR TAB(*) 20 MG TAB.SR PO SCH ×4 (08:42→21:58)
[2016-12-28] MEDS: Potassium Chlor TAB* 10 MEQ TAB.ER PO SCH (08:43)
[2016-12-28] MEDS: Cyclobenzaprine TAB* 10 MG PO PRN (08:43)
[2016-12-28] MEDS: Docusate CAP* 100 MG PO SCH ×2 (08:44→21:58)
[2016-12-28] MEDS: Triamterene/HCTZ 37.5-25 MG* CAP PO SCH (08:44)
[2016-12-28] MEDS: Atorvastatin* 10 MG TAB PO SCH (08:44)
--- NOTE | 2016-12-28 10:56 | PN ---
Subjective Date of Service: 12/28/16 Interval History: Pt c/o severe muscle spasms. She had been refusing her oxycontin her grandson "told her not to take it". she appears to be intermittently confused. we spoke about the Leahy cath and this that she may need to use the bedpan when it's discontinued. Pt stated that she "never was able to use a bedpan". At this point we will keep Lehay in Objective Active Medications: Acetaminophen (Tylenol Tab*) 650 mg PO Q6H PRN PRN Reason: FEVER/PAIN Last Admin: 12/26/16 16:30 Dose: 650 mg Alprazolam (Xanax Tab*) 0.25 mg PO BID PRN PRN Reason: ANXIETY Last Admin: 12/28/16 08:40 Dose: 0.25 mg Atorvastatin Calcium (Lipitor*) 10 mg PO DAILY ON LICENSE OF [facility] Last Admin: 12/28/16 08:44 Dose: 10 mg Cholecalciferol (Vitamin D Tab*) 1,000 units PO DAILY ON LICENSE OF [facility] Last Admin: 12/28/16 08:40 Dose: 1,000 units Cyclobenzaprine HCl (Flexeril Tab*) 10 mg PO TID ON LICENSE OF [facility] Docusate Sodium (Colace Cap*) 100 mg PO BID ON LICENSE OF [facility] Last Admin: 12/28/16 08:44 Dose: 100 mg Heparin Sodium (Porcine) (Heparin Vial(*)) 5,000 units SUBCUT Q8HR ON LICENSE OF [facility] Last Admin: 12/28/16 05:38 Dose: 5,000 units Hydromorphone HCl (Dilaudid Iv*) 0.5 mg IV SLOW PU Q4H PRN PRN Reason: PAIN Last Admin: 12/28/16 06:00 Dose: 0.5 mg Sodium Chloride (Ns 0.9% 1000 Ml*) 1,000 mls @ 75 mls/hr IV PER RATE ON LICENSE OF [facility] Last Admin: 12/27/16 15:01 Dose: 75 mls/hr Lidocaine (Lidoderm 5% Patch*) 1 patch TRANSDERM .ON 0900 OFF AT 2100 ON LICENSE OF [facility] Last Admin: 12/24/16 10:40 Dose: 1 patch Oxycodone HCl (Roxycodone Tab*) 5 mg PO Q24H ON LICENSE OF [facility] Last Admin: 12/28/16 02:28 Dose: Not Given Oxycodone HCl (Oxycontin(*)) 20 mg PO Q12HR ON LICENSE OF [facility] Last Admin: 12/28/16 10:50 Dose: Not Given Pharmacy Profile Note (Lidocaine Patch Remove*) 1 note PATCH OFF 2100 ON LICENSE OF [facility] Last Admin: 12/27/16 20:59 Dose: Not Given Polyethylene Glycol/Electrolytes (Miralax*) 34 gm PO BID ON LICENSE OF [facility] Last Admin: 12/28/16 08:39 Dose: 34 gm Potassium Chloride (Klor Con Er Tab*) 20 meq PO DAILY ON LICENSE OF [facility] Last Admin: 12/28/16 08:43 Dose: 20 meq Senna (Senokot Tab*) 2 tab PO BEDTIME ON LICENSE OF [facility] Last Admin: 12/27/16 20:39 Dose: 2 tab Triamterene/HCTZ (Dyazide Cap*) 1 cap PO DAILY ON LICENSE OF [facility] Last Admin: 12/28/16 08:44 Dose: 1 cap Vital Signs 12/27/16 12/27/16 12/27/16 12:32 12:33 13:32 Temperature Pulse Rate Respiratory 16 16 16 Rate Blood Pressure (mmHg) O2 Sat by Pulse Oximetry 12/27/16 12/27/16 12/27/16 14:32 14:53 15:32 Temperature Pulse Rate Respiratory 18 16 18 Rate Blood Pressure (mmHg) O2 Sat by Pulse Oximetry 12/27/16 12/27/16 12/27/16 15:37 19:12 20:00 Temperature 98.9 F Pulse Rate 104 Respiratory 17 20 16 Rate Blood Pressure 150/49 (mmHg) O2 Sat by Pulse 91 Oximetry 12/27/16 12/27/16 12/27/16 20:12 20:32 20:39 Temperature Pulse Rate Respiratory 18 18 18 Rate Blood Pressure (mmHg) O2 Sat by Pulse Oximetry 12/27/16 12/27/16 12/27/16 21:12 21:32 22:39 Temperature Pulse Rate Respiratory 16 16 16 Rate Blood Pressure (mmHg) O2 Sat by Pulse Oximetry 12/27/16 12/27/16 12/28/16 23:26 23:54 00:54 Temperature 98.6 F Pulse Rate 92 Respiratory 17 17 16 Rate Blood Pressure 108/52 (mmHg) O2 Sat by Pulse 92 Oximetry 12/28/16 12/28/16 12/28/16 02:28 03:21 06:00 Temperature 98.5 F Pulse Rate 100 Respiratory 16 17 18 Rate Blood Pressure 141/66 (mmHg) O2 Sat by Pulse 94 Oximetry 12/28/16 12/28/16 12/28/16 07:00 07:18 08:40 Temperature Pulse Rate 83 Respiratory 16 16 16 Rate Blood Pressure 129/49 (mmHg) O2 Sat by Pulse 91 Oximetry 12/28/16 08:43 Temperature Pulse Rate Respiratory 16 Rate Blood Pressure (mmHg) O2 Sat by Pulse Oximetry Oxygen Devices in Use Now: Nasal Cannula - at 2l Appearance: 86 yo f in nAD, AAOx3, but imtemittently appears to be confused Eyes: No Scleral Icterus, PERRLA Ears/Nose/Mouth/Throat: NL Teeth, Lips, Gums, Mucous Membranes Moist Neck: NL Appearance and Movements; NL JVP, Trachea Midline Respiratory: Symmetrical Chest Expansion and Respiratory Effort, Clear to Auscultation Cardiovascular: NL Sounds; No Murmurs; No JVD, RRR Abdominal: NL Sounds; No Tenderness; No Distention, No Hepatosplenomegaly Lymphatic: No Cervical Adenopathy Extremities: No Edema, No Clubbing, Cyanosis Skin: No Rash or Ulcers, No Nodules or Sclerosis Neurological: - - ubale to raise legs off bed due to pain,good muscle tone b/l Result Diagrams: 12/28/16 11:10 12/28/16 11:10 Microbiology and Other Data: Microbiology 12/26/16 16:20 Urine Culture - Final Urine No Growth (<1,000 CFU/mL) 12/26/16 19:06 Aerobic Blood Culture - Preliminary Blood Venous No Growth Day 1 Anaerobic Blood Culture - Preliminary No Growth Day 1 12/26/16 19:12 Blood Culture - Preliminary Blood Venous No Growth Day 1 Assess/Plan/Problems-Billing Assessment: 86 yo F with h/o HTN presents with L1 compression fracture - Patient Problems (1) Vertebral fracture Comment: Continue oxycodone 20 mg bid and PRN meds. Pt's grandson requested for pt to be placed on dilaudid. Pt had been refusing oxycontin and now her pain is out of control. discussed with Dr. Mckeon the use of steroids as suggested by pt's grandson (who is a hopsitalist /PA at [employer]), Dr. Mckeon stated that it would impact negatively on bone healing. Dr. Mckeon's consult appreciated, CT thoracic spine shows about 50% compression of L1, felt to have progressed since 12/17/16. TLSO brace in place with no improvement in pain level. Pt will likely require pain management consult on Thursday cont Lidoderm patch (2) Hyperlipidemia Comment: Continue statin. (3) HTN (hypertension) Comment: controlled d/c HCTZ due to hyponatremia (4) Hyponatremia Comment: suspect due to a combination of pain and opioid use and mild dehydration cont gentle IVF and monitor (5) Fever Comment: temp of 100.9 on 12/26/16 in conjuction with mild hypoxemia at night-? atelectasis? -UA unremarkable CXR WNL. treated with zosyn on 12/26/16.now off antibiotics. blood cx NTD. (6) DVT prophylaxis Comment: heparin Status and Disposition: inpatient
--- NOTE | 2016-12-28 10:58 | PN ---
Progress Note - Progress Note SOAP: Subjective: [This is an 86 year old female with L1 compression fracture. She received TLSO brace yesterday afternoon which has been in place. She states that the pain is improved slightly with the brace but is dependent upon her position. She is unable to elaborate further. She is in significant pain secondary to recently being moved around in the bed. She denies Pain radiating into the lower extremities. Denies numbness and tingling in the lower extremities. She does not think she would be able to get up out of bed or ambulate if necessary. ] Objective: [ Vital Signs: Temp Pulse Resp BP Pulse Ox 98.5 F 83 16 129/49 91 12/28/16 03:21 12/28/16 07:18 12/28/16 08:43 12/28/16 07:18 12/28/16 07:18 General: Laying in bed with TLSO brace in place. Appears uncomfortable. Neuro: Motor and sensory intact. Back pain with lower extremity movements. ] Assessment: [L1 compression fracture. Current treatment with TLSO brace and pain management. ] Plan: [1. Continue TLSO brace. 2. Continue pain management. 3. Out of bed as tolerated. Case discussed with Dr. Mckeon.]
[2016-12-28 11:21] LABS: Hematocrit 37 % (35-47); Hemoglobin 12.3 g/dl (12.0-16.0); Mean Corpuscular HGB Conc 33 g/dl (31-36); Mean Corpuscular Hemoglobin 31 pg (27-31); Mean Corpuscular Volume 94 fL (80-97); Mean Platelet Volume 7 um3 (7.4-10.4); Red Blood Count 3.94 10^6/ul (4.0-5.4); Red Cell Distribution Width 13 % (10.5-15); White Blood Count 11.3 10^3/ul (3.5-10.8)
[2016-12-28 11:36] LABS: BUN/Creatinine Ratio 33.3 (8-20); EGFR African American 137.7 (>60); Potassium 4.3 mmol/L (3.5-5.0)
[2016-12-28] MEDS: Cyclobenzaprine TAB* 10 MG PO SCH ×2 (16:12→21:57)
[2016-12-28] MEDS: Senna TAB PO SCH (21:57)
[2016-12-28] MEDS: NS 0.9% 1000 ML* 1,000 ML IV SCH (22:27)
[2016-12-28] MEDS: Lidocaine Patch REMOVE* 1 NOTE MISC PATCH OFF SCH (23:22)
[2016-12-29] MEDS: HYDROmorphone* 1 MG/ML 1 ML SYR IV SLOW PU PRN ×3 (00:15→13:52)
[2016-12-29] MEDS: oxyCODONE TAB* 5 MG TAB PO SCH (04:41)
[2016-12-29] MEDS: Heparin VIAL(*) 5000 UNITS/ML VIAL (FIVE THOUSAND) SUBCUT SCH ×2 (06:13→13:53)
--- NOTE | 2016-12-29 07:55 | PN ---
Progress Note - Progress Note SOAP: Subjective: [This is an 86 year old female with L1 compression fracture that has been treated with TLSO brace and pain management. Pain in the low back has failed to improve with placement of brace. She continues to experience significant pain with slight movements in bed and has been unable to get up out of bed. She denies numbness, tingling, weakness and pain in the bilateral lower extremities. ] Objective: [ Vital Signs: Temp Pulse Resp BP Pulse Ox 97.7 F 87 17 150/68 95 12/29/16 03:30 12/29/16 03:30 12/29/16 03:30 12/29/16 03:30 12/29/16 03:30 General: Awakens to voice and responds slowly. Winces in pain with movements. Neuro: Motor and sensory intact. Speech is coherent. Responds appropriately to questions. ] Assessment: [L1 compression fracture minimally improved with TLSO brace. ] Plan: [1. Case has been reviewed with Dr. Dsouza at [facility] in [place]. He is aware that the patient has not improved with the TLSO brace and has agreed to accept her as a patient. Transfer to [facility] today.]
[2016-12-29 08:09] LABS: Hematocrit 35 % (35-47); Hemoglobin 11.8 g/dl (12.0-16.0); Mean Corpuscular HGB Conc 34 g/dl (31-36); Mean Corpuscular Hemoglobin 32 pg (27-31); Mean Corpuscular Volume 93 fL (80-97); Mean Platelet Volume 7 um3 (7.4-10.4); Red Blood Count 3.72 10^6/ul (4.0-5.4); Red Cell Distribution Width 14 % (10.5-15)
[2016-12-29 08:10] LABS: Comments Flag Yes
[2016-12-29] MEDS: Polyethylene Glycol 3350* 17 GM PACKET PO SCH (08:33)
[2016-12-29] MEDS ORDERED: Lidocaine PATCH 5%* 1 PATCH TRANSDERM SCH (09:00)
[2016-12-29 09:16] LABS: Calcium 8.6 mg/dL (8.6-10.3); EGFR African American 169.9 (>60); EGFR Non-African American 132.1 (>60); Potassium 4.3 mmol/L (3.5-5.0)
[2016-12-29 09:37] LABS: BUN/Creatinine Ratio 35.6 (8-20)
[2016-12-29] MEDS: Cyclobenzaprine TAB* 10 MG PO SCH (09:45)
[2016-12-29] MEDS: Potassium Chlor TAB* 10 MEQ TAB.ER PO SCH (09:45)
[2016-12-29] MEDS: Cholecalciferol TAB* 1000 UNITS PO SCH (09:45)
[2016-12-29] MEDS: Docusate CAP* 100 MG PO SCH (09:45)
[2016-12-29] MEDS: Atorvastatin* 10 MG TAB PO SCH (09:47)
--- NOTE | 2016-12-29 09:49 | PN ---
Subjective Date of Service: 12/29/16 Interval History: pt is fairly sedated from the Dilaudid she received. she keeps on refusing PO narcotic pain meds. Objective Active Medications: Acetaminophen (Tylenol Tab*) 650 mg PO Q6H PRN PRN Reason: FEVER/PAIN Last Admin: 12/26/16 16:30 Dose: 650 mg Alprazolam (Xanax Tab*) 0.25 mg PO BID PRN PRN Reason: ANXIETY Last Admin: 12/28/16 08:40 Dose: 0.25 mg Atorvastatin Calcium (Lipitor*) 10 mg PO DAILY [facility] Last Admin: 12/28/16 08:44 Dose: 10 mg Cholecalciferol (Vitamin D Tab*) 1,000 units PO DAILY [facility] Last Admin: 12/28/16 08:40 Dose: 1,000 units Cyclobenzaprine HCl (Flexeril Tab*) 10 mg PO TID [facility] Last Admin: 12/28/16 21:57 Dose: 10 mg Docusate Sodium (Colace Cap*) 100 mg PO BID [facility] Last Admin: 12/28/16 21:58 Dose: 100 mg Heparin Sodium (Porcine) (Heparin Vial(*)) 5,000 units SUBCUT Q8HR [facility] Last Admin: 12/29/16 06:13 Dose: 5,000 units Hydromorphone HCl (Dilaudid Iv*) 1 mg IV SLOW PU Q4H PRN PRN Reason: PAIN Last Admin: 12/29/16 08:27 Dose: 1 mg Sodium Chloride (Ns 0.9% 1000 Ml*) 1,000 mls @ 75 mls/hr IV PER RATE [facility] Last Admin: 12/28/16 22:27 Dose: 75 mls/hr Lidocaine (Lidoderm 5% Patch*) 1 patch TRANSDERM 0900 [facility] Oxycodone HCl (Roxycodone Tab*) 5 mg PO Q24H [facility] Last Admin: 12/29/16 04:41 Dose: Not Given Oxycodone HCl (Oxycontin(*)) 20 mg PO Q12HR [facility] Last Admin: 12/28/16 21:58 Dose: 20 mg Pharmacy Profile Note (Lidocaine Patch Remove*) 1 note PATCH OFF 2100 [facility] Last Admin: 12/28/16 23:22 Dose: Not Given Polyethylene Glycol/Electrolytes (Miralax*) 34 gm PO BID [facility] Last Admin: 12/29/16 08:33 Dose: 34 gm Potassium Chloride (Klor Con Er Tab*) 20 meq PO DAILY [facility] Last Admin: 12/28/16 08:43 Dose: 20 meq Senna (Senokot Tab*) 2 tab PO BEDTIME [facility] Last Admin: 12/28/16 21:57 Dose: 2 tab Vital Signs 12/28/16 12/28/16 12/28/16 10:43 11:01 13:01 Temperature Pulse Rate Respiratory 16 16 18 Rate Blood Pressure (mmHg) O2 Sat by Pulse Oximetry 12/28/16 12/28/16 12/28/16 13:57 15:44 16:12 Temperature 98.5 F 98.0 F Pulse Rate 86 Respiratory 16 18 Rate Blood Pressure 131/58 (mmHg) O2 Sat by Pulse 97 Oximetry 12/28/16 12/28/16 12/28/16 18:12 20:00 20:46 Temperature Pulse Rate 86 Respiratory 16 16 17 Rate Blood Pressure 133/61 (mmHg) O2 Sat by Pulse 95 Oximetry 12/28/16 12/28/16 12/28/16 21:57 21:58 23:33 Temperature 97.4 F Pulse Rate 101 Respiratory 16 16 17 Rate Blood Pressure 152/61 (mmHg) O2 Sat by Pulse 98 Oximetry 12/29/16 12/29/16 12/29/16 00:15 01:02 03:30 Temperature 97.7 F Pulse Rate 87 Respiratory 18 18 17 Rate Blood Pressure 150/68 (mmHg) O2 Sat by Pulse 95 Oximetry 12/29/16 08:27 Temperature Pulse Rate Respiratory 20 Rate Blood Pressure (mmHg) O2 Sat by Pulse Oximetry Oxygen Devices in Use Now: Nasal Cannula - at 2l Appearance: 86 yo F in nAD, mildly sedated, AAOx2. TLSO brace in place Eyes: No Scleral Icterus, PERRLA Ears/Nose/Mouth/Throat: NL Teeth, Lips, Gums, Mucous Membranes Moist Neck: NL Appearance and Movements; NL JVP, Trachea Midline Respiratory: Symmetrical Chest Expansion and Respiratory Effort, Clear to Auscultation Cardiovascular: NL Sounds; No Murmurs; No JVD, RRR Abdominal: NL Sounds; No Tenderness; No Distention Lymphatic: No Cervical Adenopathy Extremities: No Edema, No Clubbing, Cyanosis Skin: No Rash or Ulcers, No Nodules or Sclerosis Neurological: NL Muscle Strength and Tone Result Diagrams: 12/29/16 07:50 12/29/16 07:50 Microbiology and Other Data: Microbiology 12/26/16 16:20 Urine Culture - Final Urine No Growth (<1,000 CFU/mL) 12/26/16 19:06 Aerobic Blood Culture - Preliminary Blood Venous No Growth Day 1 Anaerobic Blood Culture - Preliminary No Growth Day 1 12/26/16 19:12 Blood Culture - Preliminary Blood Venous No Growth Day 1 Assess/Plan/Problems-Billing Assessment: 86 yo F with h/o HTN presents with L1 compression fracture - Patient Problems (1) Vertebral fracture Comment: Continue oxycodone 20 mg bid and PRN meds. Pt's grandson requested for pt to be placed on dilaudid. Pt had been refusing oxycontin ([facility] gets sedated on Dilaudid. Dr. Mckeon's consult appreciated,recommended transfer to [facility] for possible kyphoplasty, Dr. Michael Dsouza is the accepting neurosurgeon. CT thoracic spine showed about 50% compression of L1, felt to have progressed since 12/17/16. TLSO brace in place with no improvement in pain level. cont Lidoderm patch (2) Hyperlipidemia Comment: Continue statin. (3) HTN (hypertension) Comment: SBP in 150's today-will monitor d/c HCTZ due to hyponatremia (4) Hyponatremia Comment: suspect due to a combination of pain and opioid use/ dehydration and HCTZ cont gentle IVF and monitor (5) Fever Comment: temp of 100.9 on 12/26/16 in conjuction with mild hypoxemia at night-? atelectasis? -UA unremarkable CXR WNL. treated with zosyn on 12/26/16.now off antibiotics. blood cx NTD. (6) DVT prophylaxis Comment: heparin Status and Disposition: inpatient. Pt was accepted for transfer. Transfer center from [facility] placed pt on waiting list. It most likely will not happen today.
[2016-12-29] MEDS ORDERED: Cyclobenzaprine TAB* 10 MG PO PRN (09:52)
[2016-12-29] MEDS ORDERED: Furosemide IV* 10 MG/ML 2 ML VIAL (20 MG) IV ONE (10:02)
[2016-12-29] MEDS: NS 0.9% 1000 ML* 1,000 ML IV SCH (12:23)
[2016-12-29] MEDS: oxyCODONE SR TAB(*) 20 MG TAB.SR PO SCH (12:28)
[2016-12-29] MEDS ORDERED: oxyCODONE TAB* 5 MG TAB PO PRN (12:49)
[2016-12-29] MEDS ORDERED: D5NS 0.9% 1000 ML BAG* 1,000 ML IV SCH (13:00)
--- NOTE | 2016-12-29 14:45 | TRS ---
TRANSFER SUMMARY: DATE OF ADMISSION: 12/22/16 DATE OF ANTICIPATED TRANSFER: 12/29/16, to [facility]. PRIMARY CARE PROVIDER: Dr. Dougherty. Patient also follows with Dr. Mckeon, as well as Dr. Michael Dsouza, neurosurgery department at [facility] in [place] DISCHARGE DIAGNOSIS: L1 burst compression fracture in a patient status post fall. SECONDARY DIAGNOSES: 1. Hypertension. 2. Osteoporosis. 3. Chronic fatigue. 4. Hyperlipidemia. 5. History of ankle surgery. 6. Hysterectomy. 7. History of wrist fracture. 8. History of cataract surgery. MEDICATIONS: That the patient is currently taking in the hospital include: 1. Xanax 0.25 mg b.i.d. p.r.n. 2. Acetaminophen 650 mg every 6 hours p.r.n. 3. Lipitor 20 mg daily. 4. Vitamin D3, 1000 mg daily. 5. Flexeril 10 mg 3 times a day p.r.n. 6. D5 normal saline at 75 mL an hour. 7. Colace 100 mg b.i.d. 8. Dilaudid 0.5 mg to 1 mg on a p.r.n. basis. 9. Heparin 5000 units subcutaneously every 8 hours. 10. Lidocaine patch 5%, apply to lower back. 11. Polyethylene glycol 34 g b.i.d. 12. Potassium chloride 20 mEq daily. 13. Senna 2 tablets at bedtime p.r.n. 14. OxyContin 20 mg every 12-hour schedule and oxycodone 5 mg every 4 hours p.r.n. LABORATORY DATA: On 12/29/16, white blood cell count of 11.0, hemoglobin 11.8, hematocrit 35, and platelets 243. Sodium of 126, potassium 4.3, chloride 91, carbon dioxide 31, BUN 16, creatinine 0.45. C-reactive protein on 12/17/16 was below 1. Abdominal x-ray obtained on 12/26/16, impression: "Fecal stasis throughout the colon, with distended colon and air in a nonspecific pattern." Chest x-ray obtained on 12/27/16, impression: "No active cardiopulmonary disease noted." Thoracic spine CT, impression: "Progressive compression of L1 vertebra, which is now approximately 50% compressed. The remainder of the thoracic spine demonstrates no compression fracture." It was compared with a CT obtained on 0 12/17/16. CONSULTATIONS DURING THE HOSPITAL STAY: Included Dr. Mckeon from neurosurgery. MICROBIOLOGY STUDY: Blood cultures obtained on 12/26/16 was negative for growth. Urine culture obtained on 12/26/16 also no growth. HOSPITALIZATION COURSE: Adele Kirby is an 86-year-old female who fell after tripping over something in her house and she came to the hospital for evaluation. Initially, she came in for evaluation on 12/17/16, which showed a compression fracture. The patient was discharged from the ER, but she presented back to ED on 12/22/16. The CT of her thoracic vertebra showed worsening of L1 compression fracture. Dr. Mckeon saw the patient in consultation. He recommended TLSO brace. The patient was to be nonambulatory up to that point. She received the brace on 12/27/16, but despite that the pain was still uncontrollable. We had several conversations with the patient's family members who preferred for the patient to be treated with IV narcotics and the patient was not encouraged by the family members to continue oral narcotics. That resulted in sedation of the patient. She developed hyponatremia, which most likely was due to a combination of dehydration as well as hydrochlorothiazide use and new opioid medications and pain. She was started on intravenous fluids on 12/27/16. Her hyponatremia nevertheless continued to stay at more or less the same level at 127 to 126. The patient did have problems with fecal stasis and constipation and that resolved on on current bowel regimen. The patient neurologically had been intact throughout her hospital stay, but she continued to have uncontrollable pain. At that point, the case was discussed with Dr. Mckeon on 12/29/16, who in turn discussed it with Dr. Michael Dsouza from neurosurgery department at [facility]. The neurosurgery specialist agreed that the patient will need transfer for evaluation for possible kyphoplasty or other neurosurgical procedure that would not be able to be performed by Dr. Mckeon at our facility. Dr. Michael Dsouza accepted the patient for transfer. Please also note that the patient had a Leahy catheter placed during her hospital stay based on the patient's request and that she was unable to use a bedpan while being on bedrest due to her compression fracture. For physical exam at discharge, please see daily progress notes. Please note this is a short summary of the patient's hospitalization. Please refer to further medical records for details. TIME SPENT: Approximately 50 minutes were spent on the patient's transfer. CC: Dr. Dougherty; Dr. Mckeon; Dr. Michael Dsouza* [id number]/CPS #: [id number] [facility]
[2016-12-29 15:54] VITALS: BP 145/77
[2016-12-29] MEDS ORDERED: HYDROmorphone* 1 MG/ML 1 ML SYR IV SLOW PU ONE (17:11)
== END 2016-12-29 17:30 | disposition short-term general hospital (02) | DRG 552 ==
LOC: ED 21:15 → MED 23:34 → OBSVTOIN 12-23 16:00
PROVIDERS: ADMIT Hospitalist; ATTEND Internal Medicine
DX: S32.011A Stable burst fracture of first lumbar vertebra, initial encounter for closed fracture (principal); E87.1 Hypo-osmolality and hyponatremia; E86.0 Dehydration; R50.9 Fever, unspecified; W01.0XXA Fall on same level from slipping, tripping and stumbling without subsequent striking against object, initial encounter; Y92.9 Unspecified place or not applicable; I10 Essential (primary) hypertension; M81.0 Age-related osteoporosis without current pathological fracture; R53.82 Chronic fatigue, unspecified; R32 Unspecified urinary incontinence; E78.5 Hyperlipidemia, unspecified; Z79.899 Other long term (current) drug therapy; Z88.8 Allergy status to other drugs, medicaments and biological substances; Z82.3 Family history of stroke
CPT/HCPCS: 36415; 71010; 72128; 74000; 80048; 81003; 81015; 82306; 85025; 85027; 87040; 87086; A9270-GY; G8978-GP-CJ; G8979-GP-CI; G8980-GP-CJ; J1170; J1644; J2543